=== PATIENT | female | born 1945 | race Caucasian/White ===

== ENCOUNTER 2020-10-29 09:07 | Outpatient (REF) | payer MEDICARE, OTHER, SELFPAY ==
--- NOTE | ~2020-10-29 | MM_ITS ---
EXAMINATION: MM SCREENING DIGITAL BREAST TOMOSYNTHESIS, BILATERAL CLINICAL INFORMATION: Screening. Asymptomatic. The lifetime risk of breast cancer based on the Tyrer-Cuzick Model is 3.4%. COMPARISON: Mammography: August 11, 2019 and studies dating back to July 21, 2012 TECHNIQUE: Digital breast tomosynthesis is performed in both the craniocaudal and mediolateral oblique views along with computer-aided detection (CAD). Synthesized 2D images are generated from the tomosynthesis. FINDINGS: There are scattered areas of fibroglandular density (ACR BI-RADS breast composition Category b). There are no significant masses, abnormal calcifications, or other abnormalities. MM/MM tomosynthesis screening BI IMPRESSION: There are no significant changes from prior study. ASSESSMENT: BI-RADS 1: Negative RECOMMENDATION: Routine annual mammography screening. This patient's information was entered into a reminder system with a target due date for their next mammogram.
== END 2020-10-29 09:08 | disposition home or self-care (01) ==
LOC: HO.MAMMO 09:07
PROVIDERS: PCP Internal Medicine; Visit Provider Internal Medicine
DX: Z12.31 Encounter for screening mammogram for malignant neoplasm of breast (principal)
CPT/HCPCS: 77063; 77067

== ENCOUNTER 2021-11-02 09:29 | Outpatient (REF) | payer MEDICARE, OTHER, SELFPAY ==
--- NOTE | ~2021-11-02 | MM_ITS ---
EXAMINATION: MM SCREENING DIGITAL BREAST TOMOSYNTHESIS, BILATERAL CLINICAL INFORMATION: Screening. Asymptomatic. The lifetime risk of breast cancer based on the Tyrer-Cuzick Model is 3.1%. COMPARISON: Mammography: October 29, 2020 and studies dating back to December 30, 2013 TECHNIQUE: Digital breast tomosynthesis is performed in both the craniocaudal and mediolateral oblique views along with computer-aided detection (CAD). Synthesized 2D images are generated from the tomosynthesis. FINDINGS: There are scattered areas of fibroglandular density (ACR BI-RADS breast composition Category b). There are no significant masses, abnormal calcifications, or other abnormalities. MM/MM tomosynthesis screening BI IMPRESSION: There are no significant changes from prior study. ASSESSMENT: BI-RADS 1: Negative RECOMMENDATION: Routine annual mammography screening. This patient's information was entered into a reminder system with a target due date for their next mammogram.
== END 2021-11-02 09:30 | disposition home or self-care (01) ==
LOC: HO.MAMMO 09:29
PROVIDERS: PCP Internal Medicine; Visit Provider Internal Medicine
DX: Z12.31 Encounter for screening mammogram for malignant neoplasm of breast (principal)
CPT/HCPCS: 77063; 77067

== ENCOUNTER 2022-11-09 10:35 | Outpatient (REF) | payer MEDICARE, OTHER, SELFPAY ==
--- NOTE | ~2022-11-09 | MM_ITS ---
EXAMINATION: MM SCREENING DIGITAL BREAST TOMOSYNTHESIS, BILATERAL CLINICAL INFORMATION: Screening. Asymptomatic. The lifetime risk of breast cancer based on the Tyrer-Cuzick Model is 3%. COMPARISON: Mammography: 11/02/2021, 10/29/2020, 08/11/2019 TECHNIQUE: Digital breast tomosynthesis is performed in both the craniocaudal and mediolateral oblique views along with computer-aided detection (CAD). Synthesized 2D images are generated from the tomosynthesis. FINDINGS: There are scattered areas of fibroglandular density (ACR BI-RADS breast composition Category b). There are no significant masses, abnormal calcifications, or other abnormalities. Parenchymal pattern is similar to prior studies. Scattered parenchymal asymmetries are stable. There is no developing density or architectural abnormality. The axilla and skin contours are unremarkable. No significant changes. MM/MM tomosynthesis screening BI IMPRESSION: No mammographic evidence of malignancy. ASSESSMENT: BI-RADS 2: Benign RECOMMENDATION: Routine annual mammography screening. This patient's information was entered into a reminder system with a target due date for their next mammogram.
== END 2022-11-09 10:36 | disposition home or self-care (01) ==
LOC: HO.MAMMO 10:35
PROVIDERS: PCP Internal Medicine; Visit Provider Internal Medicine
DX: Z12.31 Encounter for screening mammogram for malignant neoplasm of breast (principal)
CPT/HCPCS: 77063; 77067

== ENCOUNTER 2022-11-23 07:13 | Outpatient (REF) | payer MEDICARE, OTHER, SELFPAY ==
[2022-11-23 11:33] LABS: MANUAL DIFF FLAG NO
[2022-11-23 11:53] LABS: Basophils Percent Auto 0.7 % (0-2); Eosinophils Absolute Auto 0.3 X10*3/uL (0.0-0.4); Eosinophils Percent Auto 4.9 % (0-4); Hemoglobin 13.3 g/dl (12.0-16.0); Imm Gran Abs Auto 0.02 X10*3/uL (0.00-0.03); Imm Gran Pct Auto 0.4 % (0.0-0.4); Lymphocytes Absolute Auto 1.6 X10*3/uL (1.2-4.9); Lymphocytes Percent Auto 29.3 % (20-40); Mean Corpuscular HGB Conc 33.3 g/dl (31.0-35.0); Mean Corpuscular Hemoglobin 31.3 pg (27.0-33.0); Mean Corpuscular Volume 94.1 fL (80.0-98.0); Mean Platelet Volume 9.9 fL (9.4-12.3); Monocytes Absolute Auto 0.5 X10*3/uL (0.1-1.2); Monocytes Percent Auto 8.9 % (2-11); Neutrophils Absolute Auto 3.1 x10*3/uL (2.0-8.3); Neutrophils Percent Auto 55.8 % (45-73); Platelet Count 250 X10*3/uL (160-400); Red Blood Count 4.25 X10*6/uL (4.20-5.50); Red Cell Distribution Width 12.6 % (11.0-16.0); White Blood Count 5.5 X10*3/uL (4.8-10.8)
[2022-11-23 12:37] LABS: Alanine Aminotransferase 22 U/L (0-31); Alkaline Phosphatase 68 U/L (39-117); Anion Gap 10 (12-20); Aspartate Amino Transferase 17 U/L (5-31); Bilirubin Total 0.4 mg/dL (0.0-1.0); Blood Urea Nitrogen 15 mg/dL (9-16); Calcium 8.8 mg/dL (8.4-10.2); Carbon Dioxide 28 mmol/L (22-29); Chloride 106 mmol/L (96-108); Cholesterol 187 mg/dL; Estimated Glomerular Filt Rate > 60; Glucose Fasting 111 mg/dL (60-99); HDL Cholesterol 48 mg/dL; LDL Cholesterol Calculated 104 mg/dl; Potassium 4.1 mmol/L (3.3-5.1); Sodium 140 mmol/L (135-145); Total Protein 6.8 g/dL (6.5-8.0); Triglycerides 179 mg/dL
[2022-11-23 12:50] LABS: Folate 14.7 ng/mL (> or = 4.0); Thyroid Stimulating Hormone 2.95 uIU/mL (0.32-4.0); Vitamin B12 268 pg/mL (200-900); Vitamin D 25-OH Total 51.3 ng/mL (>30)
== END 2022-11-23 07:14 | disposition home or self-care (01) ==
LOC: HO.HMGCLDS 07:13
PROVIDERS: PCP Internal Medicine; Visit Provider Internal Medicine
DX: I10 Essential (primary) hypertension (principal); K21.9 Gastro-esophageal reflux disease without esophagitis; E55.9 Vitamin D deficiency, unspecified; I51.81 Takotsubo syndrome; M16.0 Bilateral primary osteoarthritis of hip; G62.9 Polyneuropathy, unspecified
CPT/HCPCS: 36415; 80053; 80061; 82306; 82607; 82746; 84443; 85025

== ENCOUNTER → 2023-03-03 19:30 | Outpatient (REF) | payer MEDICARE, OTHER, SELFPAY | LOC: HO.SL 19:30 | PROVIDERS: Visit Provider Registered Nurse | DX: G47.10 Hypersomnia, unspecified (principal); R35.1 Nocturia | CPT/HCPCS: 95810 ==

== ENCOUNTER → 2023-03-03 19:30 | Outpatient (BNV) | payer MEDICARE, OTHER, SELFPAY | PROVIDERS: Visit Provider Psychiatry & Neurology Neurology | DX: G47.33 Obstructive sleep apnea (adult) (pediatric) (principal) | CPT/HCPCS: 95810 ==

== ENCOUNTER 2023-04-17 09:20 | Outpatient (AMB) | payer MEDICARE, OTHER, SELFPAY ==
--- NOTE | 2023-04-17 09:22 | MHC.OFFWIV ---
Intake Vital Signs 04/17/23 09:24 Height 5 ft 1 in Weight 228 lb BMI 43.1 BP 120/80 Blood Pressure Location Lt brachial Position Sitting Pulse 63 Pulse Source Pulse Oximeter Pulse Oximetry (%) 98 Oxygen Delivery Method Room Air Intake Visit Reasons: EP, cyst on right side of chest, burn left leg Intake Note: Patient here for a pimple like bump on her right breast that has been present for about 1 month, no head to it, not warm to the touch. Patient would also like to talk about a burning sensation of the right leg that has been happening on and off for a while now she mentions it happens when she is laying or sitting mainly. Patient Tobacco Use Status: Former Tobacco user Allergies penicillamine Allergy (Unknown, Verified 04/17/23 09:26) Itching Penicillins [PENICILLINS] Allergy (Unknown, Unverified 04/17/23 09:26) HIVES percocet Allergy (Unknown, Uncoded 04/17/23 09:26) itching Do you need a note to return to daycare/school/sports/work: No HPI EP, cyst on right side of chest, burn left leg HPI Details Patient presents with a one-month history of a small, crusty-appearing area on the top her right breast. Denies any associated pain, drainage, swelling, fever. She also reports a mild pain in her right buttock over the last year or so, with radiation down her posterior lateral right thigh, not extending further than the knee. She and she denies any leg weakness or numbness. She notices this most after prolonged sitting or standing. [facility] Social History Patient Tobacco Use Status: Former Tobacco user Review of Systems Const All systems reviewed & are unremarkable except as noted in HPI and below Physical Exam Vital Signs: Last Vital Signs Pulse 63 04/17/23 09:24 BP 120/80 04/17/23 09:24 Pulse Ox 98 04/17/23 09:24 Oxygen Delivery Method Room Air 04/17/23 09:24 BMI result Body Mass Index 43.1 Const General: cooperative, healthy appearing, comfortable and no acute distress Resp Effort & Inspection: normal respiratory effort and able to speak in complete sentences Cardio Jugular venous distension: no JVD Palpation: normal PMI Rate: regular rate Rhythm: regular rhythm Back/Spine/Pelvis Other: normal/painless right hip ROM Thoracic/Lumbar Spine: thoracic and lumbar spine normal to inspection and thoraco-lumbar ROM normal Sacroiliac joints: on the right tender to palpation Skin Other: Approximately 0.5 cm in diameter wart-appearing lesion with bumpy/rough surface top aspect of right breast approximately 12:00 o'clock. No associated pain to palpation, erythema, warmth, induration, no discharge. Extrem General: Yes capillary refill normal and Yes no clubbing, cyanosis or edema Psych Appearance: grossly normal Mental Status: mental status grossly normal Speech and movement: Normal speech and movement present Assessment & Plan Assessment & Plan (1) Wart: Code(s): B07.9 - Viral wart, unspecified Qualifiers: Viral wart type: unspecified viral wart Qualified Code(s): B07.9 - Viral wart, unspecified Plan: Patient has small, about 0.5 cm in diameter on top aspect of right breast. No associated induration, fluctuance, tenderness, erythema, warmth. Advised her to purchase OTC wart/salicylic acid 40% patches, and apply these as needed until worked falls. If this does not help, or she additional sites, she should return to clinic, see PCP, or follow-up with dermatology. (2) Inflammation of right sacroiliac joint: Code(s): M46.1 - Sacroiliitis, not elsewhere classified Plan: It appears she has some right sacroiliac joint dysfunction/inflammation. Advised her to take ibuprofen/Tylenol as needed, apply heat, and I also printed her outand reviewed a some stretches for SI joint and piriformis to do daily at home. If her pain persists, she should contact PCP and may benefit from a course of physical therapy. She agrees to plan. Coding Level of Care Code Est Pt Level 3 (54759) Diagnoses Viral warts, unspecified type B07.9 Viral wart type: unspecified viral wart Inflammation of right sacroiliac joint M46.1
[2023-04-17 09:24] VITALS: BP 120/80; PULSE 63; O2SAT 98; BMI 43.1
== END 2023-04-17 09:55 | disposition home or self-care (01) ==
PROVIDERS: Visit Provider Nurse Practitioner Family
DX: B07.9 Viral wart, unspecified (principal); M46.1 Sacroiliitis, not elsewhere classified
CPT/HCPCS: 99213

== ENCOUNTER 2023-11-15 10:39 | Outpatient (REF) | payer MEDICARE, OTHER, SELFPAY | END 2023-11-15 10:40 | disposition home or self-care (01) | LOC: HO.MAMMO 10:39 | PROVIDERS: PCP Internal Medicine; Visit Provider Internal Medicine | DX: Z12.31 Encounter for screening mammogram for malignant neoplasm of breast (principal) | CPT/HCPCS: 77063; 77067 ==

== ENCOUNTER → 2023-11-15 10:45 | Outpatient (BNV) | payer MEDICARE, OTHER, SELFPAY | PROVIDERS: PCP Internal Medicine; Visit Provider Radiology Diagnostic Radiology | DX: Z12.31 Encounter for screening mammogram for malignant neoplasm of breast (principal) | CPT/HCPCS: 77063; 77067 ==

== ENCOUNTER 2024-05-01 08:17 | Outpatient (REF) | payer MEDICARE, OTHER, SELFPAY ==
[2024-05-01 10:00] LABS: MANUAL DIFF FLAG NO
[2024-05-01 10:14] LABS: Basophils Percent Auto 0.5 % (0-2); Eosinophils Absolute Auto 0.2 X10*3/uL (0.0-0.4); Eosinophils Percent Auto 3.6 % (0-4); Hematocrit 39.6 % (37.0-47.0); Hemoglobin 13.4 g/dl (12.0-16.0); Imm Gran Abs Auto 0.04 X10*3/uL (0.00-0.03); Imm Gran Pct Auto 0.7 % (0.0-0.4); Lymphocytes Absolute Auto 1.3 X10*3/uL (1.2-4.9); Lymphocytes Percent Auto 22.8 % (20-40); Mean Corpuscular HGB Conc 33.8 g/dl (31.0-35.0); Mean Corpuscular Hemoglobin 31.9 pg (27.0-33.0); Mean Corpuscular Volume 94.3 fL (80.0-98.0); Mean Platelet Volume 9.9 fL (9.4-12.3); Monocytes Absolute Auto 0.6 X10*3/uL (0.1-1.2); Neutrophils Absolute Auto 3.4 x10*3/uL (2.0-8.3); Neutrophils Percent Auto 62.4 % (45-73); Platelet Count 213 X10*3/uL (160-400); Red Cell Distribution Width 12.5 % (11.0-16.0); White Blood Count 5.5 X10*3/uL (4.8-10.8)
[2024-05-01 10:34] LABS: Estimated Average Glucose 114 mg/dL; Hemoglobin A1c % 5.6 % (<6.0)
[2024-05-01 10:44] LABS: Alanine Aminotransferase 29 U/L (0-31); Albumin Level 3.9 g/dL (3.5-5.0); Alkaline Phosphatase 74 U/L (39-117); Anion Gap 9 (12-20); Aspartate Amino Transferase 17 U/L (5-31); Bilirubin Total 0.5 mg/dL (0.0-1.0); Blood Urea Nitrogen 13 mg/dL (9-16); Calcium 9.1 mg/dL (8.4-10.2); Carbon Dioxide 28 mmol/L (22-29); Chloride 104 mmol/L (96-108); Cholesterol 181 mg/dL (<200); Estimated Glomerular Filt Rate > 60; Glucose Fasting 124 mg/dL (60-99); HDL Cholesterol 51 mg/dL (>40); LDL Cholesterol Calculated 95 mg/dL (<100); Potassium 4.2 mmol/L (3.3-5.1); Sodium 137 mmol/L (135-145); Total Protein 7.4 g/dL (6.5-8.0); Triglycerides 179 mg/dL (<150); Vitamin D 25-OH Total 54.3 ng/mL (>30)
== END 2024-05-01 08:18 | disposition home or self-care (01) ==
LOC: HO.HMGCLDS 08:17
PROVIDERS: PCP Internal Medicine; Visit Provider Internal Medicine
DX: I10 Essential (primary) hypertension (principal); I51.81 Takotsubo syndrome; K21.9 Gastro-esophageal reflux disease without esophagitis; E55.9 Vitamin D deficiency, unspecified; G62.9 Polyneuropathy, unspecified; E66.09 Other obesity due to excess calories; Z13.1 Encounter for screening for diabetes mellitus
CPT/HCPCS: 36415; 80053; 80061; 82306; 83036; 84443; 85025

== ENCOUNTER 2024-08-26 13:55 | Outpatient (AMB) | payer MEDICARE, OTHER, SELFPAY ==
--- NOTE | 2024-08-26 14:19 | A.OFFPC_ITS ---
Vital Signs 08/26/24 14:21 Height 5 ft 1.75 in Weight 242 lb BMI 44.6 BP 142/90 H Blood Pressure Location Rt brachial Position Sitting Pulse 62 Temp 98.1 F Pulse Oximetry (%) 96 Intake Visit Reasons: Check heart Intake Note: Patient noted worsening fatigue and dyspnea with mild exertion. Pulmonology r/o'd Cpap malfunction, but noted slight heart murmur. Distant history of hospitalization for Broken Heart Syndrome (< 10 years ago). Outpatient cardiology follow up, but patient discharged (no need for follow up). Libia is at her highest weight now, and would like to start taking Ozempic or Wegovy. Allergies penicillamine Allergy (Unknown, Verified 08/26/24 16:06) Itching Medication List - Last Reconciled 08/26/24 by Celina Morales PA-C amlodipine 10 mg PO DAILY bupropion HCl XL 300 mg PO DAILY cetirizine 10 mg PO DAILY cholecalciferol (vitamin D3) 50 mcg PO DAILY duloxetine mg PO gabapentin mg PO [id number] mg (krill oil) 1 cap PO DAILY losartan 50 mg PO DAILY meloxicam 15 mg PO DAILY metoprolol succinate ER 50 mg PO DAILY omeprazole 20 mg PO DAILY semaglutide (Ozempic) 0.25 mg (0.368 mL) subcut QWEEK PFSH Social History Patient Tobacco Use Status: Former Tobacco user Physical exam (Primary Care) Vital Signs: Last Vital Signs Temp 98.1 F 08/26/24 14:21 Pulse 62 08/26/24 14:21 BP 142/90 H 08/26/24 14:21 Pulse Ox 96 08/26/24 14:21 Care Plan Goal for BP management: Goal is 130/80 BP today at 142/90 Next steps: Will monitor and reassess at next visit BMI result Body Mass Index 44.6 BMI Assessment/Plan discussion: High BMI High, discussed plan: lifestyle, weight reduction, dietary, physical activity and alcohol moderation Tobacco/Smoking Status: Tobacco use Status Patient Tobacco Use Status Former Tobacco user 08/26/24 14:20 Coding Level of Care Code Est Pt Level 4 (75423) Complex EM visit Add On G2211 Diagnoses Fatigue R53.83 Heart murmur R01.1 Morbid obesity with BMI of 45.0-49.9, adult E66.01; Z68.42 Assessment & Plan Assessment & Plan (1) Fatigue: Code(s): R53.83 - Other fatigue Category: Medical Plan: Will continue to evaluate with labs, x-ray, carotid ultrasound and referral to Cardiology. Condition is stable at this time. (2) Heart murmur: Code(s): R01.1 - Cardiac murmur, unspecified Category: Medical Plan: Will continue to evaluate with labs, x-ray, carotid ultrasound and referral to Cardiology. Condition is stable at this time. (3) Morbid obesity with BMI of 45.0-49.9, adult: Code(s): E66.01 - Morbid (severe) obesity due to excess calories; Z68.42 - Body mass index [BMI] 45.0-49.9, adult Category: Medical Plan: Patient will continue dieting and exercising. Will attempt to send Ozempic for weight loss to her pharmacy. Will continue to monitor. Plan Plan - Continue monitoring blood pressure; maintain current Losartan dosage, avoid increasing unless consistently elevated readings are noted. - Order an EKG and initiate referral to cardiology for further evaluation and testing including echocardiogram to assess ejection fraction and rule out congestive heart failure. - Consider ordering a comprehensive metabolic panel including BNP for heart function evaluation. - Discuss potential addition of weight management pharmacotherapy with coverage check on Ozempic or Wegovy. - Monitor sleep apnea management adherence and assess for positive developments or persistent symptoms. Orders: Orders Complete Blood Count Auto Diff Today R01.1 - Cardiac murmur, unspecified, R53.83 - Other fatigue Hemoglobin A1c Today R01.1 - Cardiac murmur, unspecified, R53.83 - Other f atigue Erythrocyte Sedimentation Rate Today R01.1 - Cardiac murmur, unspecified, R53.83 - Other fatigue US carotid duplex BI Today R01.1 - Cardiac murmur, unspecified, R53.83 - Other fatigue Comprehensive [place]. Panel Fast Today R01.1 - Cardiac murmur, unspecified, R53.83 - Other fatigue B Type Natriuretic Peptide Today R60.0 - Localized edema Magnesium Today R01.1 - Cardiac murmur, unspecified, R53.83 - Other fatigue Liver Panel Today R01.1 - Cardiac murmur, unspecified, R53.83 - Other fatigue Lipid Panel Today R01.1 - Cardiac murmur, unspecified, R53.83 - Other fatigue TSH reflex Free T4 Today R01.1 - Cardiac murmur, unspecified, R53.83 - Other fatigue Vitamin D 25-OH Total Today R01.1 - Cardiac murmur, unspecified, R53.83 - Other fatigue Vitamin B12 and Folate Today R01.1 - Cardiac murmur, unspecified, R53.83 - Other fatigue C Reactive Protein Today R01.1 - Cardiac murmur, unspecified, R53.83 - Other fatigue Lyme IgG/IgM w/reflex to WB Today R01.1 - Cardiac murmur, unspecified, R53.83 - Other fatigue XR chest 2V Today R01.1 - Cardiac murmur, unspecified, R53.83 - Other fatigue Referrals Cardiology Referral R01.1 - Cardiac murmur, unspecified, R53.83 - Other fatigue Medications: New semaglutide (Ozempic) for 4 weeks 0.25 mg (0.368 mL) subcut QWEEK 3 mL 1RF obesity Patient Instructions: Plan - Continue monitoring blood pressure; maintain current Losartan dosage, avoid increasing unless consistently elevated readings are noted. - Order an EKG and initiate referral to cardiology for further evaluation and testing including echocardiogram to assess ejection fraction and rule out congestive heart failure. - Consider ordering a comprehensive metabolic panel including BNP for heart function evaluation. - Discuss potential addition of weight management pharmacotherapy with coverage check on Ozempic or Wegovy. - Monitor sleep apnea management adherence and assess for positive developments or persistent symptoms. Scribe Plan - Not visible on output: History of Present Illness The patient is a 79-year-old female presenting with ongoing fatigue and a heart murmur detected during a recent examination. The fatigue has been persistent for several months, noted to be similar to previous experiences prior to sleep apnea diagnosis, but her CPAP compliance is currently at 97% with minimal events. Sleep apnea was diagnosed with CPAP therapy being effective in minimizing apneic events. Despite treatment, the patient continues to experience fatigue, which was not theorized to be linked to CPAP function. During a prior evaluation, a slight heart murmur was identified, an observation that was new to her record. The patient has no reported dizziness or chest pain but was noted to possibly become short of breath while ascending stairs, though she stops primarily due to fatigue. Approximately 10 years ago, she experienced Takotsubo Cardiomyopathy, also known as Broken Heart Syndrome, which was managed with cardiac catheterization. At that time, she was under significant stress but there is no indication of myocardial infarction or persistent cardiac pathology since. Recently, the patient reported elevated blood pressure readings reaching 152/72 mmHg, for which she was put on Losartan by her healthcare provider a month ago. She has a previously trialed antihypertensive medication with side effects, namely Losartan which was linked to headaches in the past. Her current blood pressure medications include amlodipine, which is known to potentially cause leg swelling, though she reports no significant lower extremity edema. Obesity has been a persistent issue, related to her high body weight, nearing its highest recorded value. The patient is considering pharmacotherapy with medications such as Ozempic or Wegovy given the proven scientific basis she has been informed of. Her coverage is a factor in medication possibilities. Social History - Lives in an independent and assisted living facility for seniors - Receives weekly blood pressure checks from an onsite nurse - Formerly worked in a high-stress environment - Consults with a psychotherapist regularly - Expresses preference against extensive physical activities such as climbing stairs due to fatigue Review of Systems - Cardiovascular: Reports no dizziness or chest pains; denies lower extremity edema - Respiratory: Denies significant shortness of breath unless exerting on stairs - Musculoskeletal: Denies pain on examination, except slight pain upon palpation Physical Exam Appearance: Alert. Oriented X3. No acute distress. Head: Normal external exam. Normocephalic. Atraumatic. Eyes: Pupils are equal, round, and reactive to light. Extraocular movements intact. Conjunctiva and sclera normal. Eyelids normal. Ears: External auditory canal normal. Tympanic membranes normal. Throat: Pharynx normal. Uvula midline. Moist mucous membranes. Neck: Normal inspection. Neck supple. Full range of motion. No adenopathy. Thyroid Normal. No meningeal signs. No neck mass noted. Cardiovascular: Normal heart rate and rhythm. Heart sound normal. Slight heart murmur noted. Pulses normal throughout. Respiratory: No respiratory distress. Painless inspiration. Breath sounds normal. No wheezes/rales/rhonchi noted. Chest nontender. No accessory muscle usage noted or decreased air movement noted. Abdomen: Soft and nontender. Bowel sounds normal in all 4 quadrants. No distention noted. No organomegaly noted. No visible injury noted. Back: No costovertebral angle tenderness. Full range of motion noted. Skin: Skin warm and dry. Normal skin color. Normal skin turgor. No rashes/lesions/lacerations noted. Extremities: No lower extremity edema. Extremities exhibit normal range of motion. Extremities nontender. Neuro: Oriented X 3. No motor deficit. No sensory deficit. Reflexes normal. Results Plan - Continue monitoring blood pressure; maintain current Losartan dosage, avoid increasing unless consistently elevated readings are noted. - Order an EKG and initiate referral to cardiology for further evaluation and testing including echocardiogram to assess ejection fraction and rule out congestive heart failure. - Consider ordering a comprehensive metabolic panel including BNP for heart function evaluation. - Discuss potential addition of weight management pharmacotherapy with coverage check on Ozempic or Wegovy. - Monitor sleep apnea management adherence and assess for positive developments or persistent symptoms. Patient was informed and verbally consented to the use of an ambient scribe for clinic note documentation during this visit. Discussion Notes During the visit, I discussed the patient?s concern regarding her persistent fatigue and the possibility of it relating to her cardiac history, specifically the heart murmur and past Takotsubo Cardiomyopathy. I explained the need for further evaluation with an EKG and echocardiogram to understand her heart function. We reviewed her hypertension management and the rationale behind c urrent dosing. I addressed the indication of Ozempic or Wegovy as potential adjuncts for obesity, emphasizing the importance of her insurance coverage. I confirmed the follow-up schedule via telehealth to discuss the results of upcoming tests and any necessary adjustments in treatment plans. The importance of weekly blood pressure checks and documenting these values for review was highlighted. Patient Instructions - Continue current medication regimen for hypertension and report any new symptoms. - Attend scheduled cardiology appointment and complete all planned tests like EKG and lab work. - Report any significant shortness of breath, chest pain, or new symptoms immediately. - Maintain CPAP use as prescribed. - Keep track of blood pressure using onsite services. - Discuss potential medication for weight loss with primary care provider and insurer. - Schedule telehealth follow up within two weeks to one month to review test results. - Monitor general health and report any notable changes.
[2024-08-26 14:21] VITALS: BP 142/90; PULSE 62; TEMP 36.7; O2SAT 96; BMI 44.6
== END 2024-08-26 15:08 | disposition home or self-care (01) ==
LOC: HO.HMCSH 13:55
PROVIDERS: PCP Internal Medicine; Visit Provider Physician Assistant Medical
DX: R53.83 Other fatigue (principal); R01.1 Cardiac murmur, unspecified; E66.01 Morbid (severe) obesity due to excess calories; Z68.42 Body mass index [BMI] 45.0-49.9, adult

== ENCOUNTER → 2024-08-26 13:55 | Outpatient (BNVA) | payer MEDICARE, OTHER, SELFPAY | PROVIDERS: PCP Internal Medicine; Visit Provider Physician Assistant Medical | DX: R53.83 Other fatigue (principal); R01.1 Cardiac murmur, unspecified; E66.01 Morbid (severe) obesity due to excess calories; Z68.42 Body mass index [BMI] 45.0-49.9, adult; Z71.3 Dietary counseling and surveillance | CPT/HCPCS: 99212 ==

== ENCOUNTER 2024-09-09 08:47 | Outpatient (REF) | payer MEDICARE, OTHER, SELFPAY ==
--- NOTE | ~2024-09-09 | US_ITS ---
CLINICAL HISTORY: R01.1 - Cardiac murmur, unspecified US Bilateral Carotid Duplex Comparison: None Findings: Moderate plaque is present within bilateral common carotid arteries and carotid bulbs. Normal color doppler and waveforms morphology. No focal elevation of flow velocity or ICA to CCA peak systolic velocity ratio. Vertebral arteries demonstrate antegrade flow bilaterally. IMPRESSION: Normal carotid velocities, no significant stenosis (0-49% stenosis). This document has been electronically signed by: Virgil Mueller MD, PHD on 09/10/2024 05:05:11
--- NOTE | ~2024-09-09 | XR_ITS ---
CLINICAL HISTORY: R01.1 - Cardiac murmur, unspecified 2 view chest x-ray Comparison: None Findings: The lungs are clear. Heart size is normal. No acute fracture. IMPRESSION: 1. No acute findings. This document has been electronically signed by: Virgil Mueller MD, PHD on 09/10/2024 05:01:23
--- OUTSIDE RECORDS SUMMARY | 2024-09-09 08:52 | XMS_ITS | Clinical Summary ---
Author Organization 175 [facility] Address [address] [place] [address] Phone Care Team Providers Care Job Analyst Name Role Phone ReinaLj mead Primary Care Provider [phone] Allergies Active Allergy Reactions Criticality Noted Date Comments Penicillins 05/28/2016 Other Reaction(s): Hives/Urticaria Medications Medication Sig Dispensed Refills Start Date End Date Status cetirizine (ZyrTEC) 10 mg tablet Take 1 tablet (10 mg total) by mouth 1 (one) time each day. 11/21/2023 Active gabapentin (NEURONTIN) 300 mg capsule 11/19/2022 Active traZODone (DESYREL) 50 mg tablet 09/13/2022 Active alpha lipoic acid 600 mg capsule Take by mouth. Active minoxidiL-betamethaso ne (Oxopod) 7-0.05 % solution Apply topically. Active azelastine (ASTELIN) 137 mcg (0.1 %) nasal spray 2 Sprays by Each Nare route 2 times daily. Use in each nostril as directed 12/15/2021 Active DULoxetine (CYMBALTA) [address] capsule Take 3 Caps by mouth daily. Take 1 cap in the moring and 2 caps at night. 03/07/2020 Active fluticasone propionate (FLONASE) 50 mcg/actuation nasal spray 11/17/2019 Active omeprazole OTC (PriLOSEC OTC) 20 mg EC tablet 20 mg. 10/12/2016 Active meloxicam (MOBIC) 15 mg tablet Take 15 mg by mouth daily. Active amLODIPine (NORVASC) 10 mg tablet Take 10 mg by mouth daily. 08/22/2017 Active metoprolol succinate (TOPROL-XL) 50 mg 24 hr tablet Take 50 mg by mouth daily. Active buPROPion XL (WELLBUTRIN XL) 300 mg 24 hr tablet Take 300 mg by mouth every morning. Active KRILL OIL ORAL Take by mouth daily. Active cholecalciferol (VITAMIN D-3) 25 mcg (1,000 unit) capsule Take by mouth. Active losartan (COZAAR) 50 mg tablet 07/06/2024 Active Active Problems Problem Noted Date Diagnosed Date Nocturnal hypoxia 01/24/2023 Overview (06/02/2024): 01/06/2023 [place] on CPAP showed: Low-dose SPO2 is 75%. Time spent less than 88% is 50 minutes Supplemental oxygen might be indicated if treatment study shows decreased oxygen as well. Obstructive sleep apnea syndrome 05/16/2017 Overview (06/02/2024): [facility] [place]ysomnogram Date 03/03/2023. Wt 220#; BMI 41.6. Without PAP: AHI 61; Obstructive apneas 34; Mixed apneas 0; Central apneas 0; Hypopneas 49; average oxygen saturation 92 (lowest 83%); PLMs 50. With PAP: On CPAP @ 6-10cm; AHI 0, and, average oxygen saturation was 94% and lowest SpO2-87%; PLMs ~ - Obstructive Sleep Apnea - severe overall and not present in REM; mostly obstructive apnea and hypoapnea ; with sleep related hypoventilation by 2022 split night polysomnogram. Patient apnea and hypoapnea well controlled on CPAP of 10cm with N20 mask. [facility] Home Sleep Apnea Test: Date ; BMI 31.2; AHI 28; average oxygen saturation 94% (lowest 81% with saturations <88% for 5% or more of study) - Obstructive Sleep Apnea - moderate; with sleep related hypoventilation by 2019 home sleep apnea test. Last Assessment & Plan: CPAP 4-18 through [facility] Patient has mild residual apnea with some oxygen desaturations on 01/06/2023[place]O on CPAP. Gastroesophageal reflux disease 10/12/2016 Depression 05/28/2016 Dilated cardiomyopathy 05/28/2016 Hypertension 05/28/2016 Polymyalgia rheumatica 05/28/2016 Encounters Date Type Department Care Team Description 07/17/2024 Telephone Pulmonolgy [address] [place] [phone] Lara Addison [place] DME request (Order for CPAP supplies sent to [facility]) 07/13/2024 10:30 AM EST Office Visit [facility] 175 [facility] [address] [place] [phone] Steffi Velazco NP Obstructive sleep apnea syndrome (Primary Dx); Nocturnal hypoxia; Dilated cardiomyopathy (CMS/HCC); Hypertension, unspecified type; PND (post-nasal drip); Seasonal allergies; Morbid obesity (CMS/HCC) from Last 3 Months Medical History Medical History Date Comments PMR (polymyalgia rheumatica) (CMS/HCC) HTN (hypertension) GERD (gastroesophageal reflux disease) Depression Dilated cardiomyopathy (CMS/HCC) 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 Sleep apnea treated with con tinuous positive airway pressure (CPAP) 1989 Social History Tobacco Use Types Packs/Day Years Used Date Smoking Tobacco: Former Cigarettes Q uit: 05/28/1981 Smokeless Tobacco: Never Tobacco Cessation:Counseling Given: Not Answered Alcohol Use Standard Drinks/Week Comments Not Asked 0 (1 standard drink = 0.6 oz pur e alcohol) Sex and Gender Information Value Date Recorded Sex Assigned at Not on file Gender Identity Not on file Sexual Orientation Not on file Job Start Date Occupation Industry Not on file Not on file Not on file Obstetrics History Last Filed Vital Signs Vital Sign Reading Time Taken Comments Blood Pressure 132/76 07/13/2024 10:38 AM EST Pulse 63 07/13/2024 10:38 AM EST Temperature 36.6 ??C (97.9 ??F) 07/13/2024 10:[address] Respiratory Rate 16 07/13/2024 10:38 AM EST Oxygen Saturation 98% 07/13/2024 10:38 AM EST Inhaled Oxygen Concentration - - Weight 109 kg (239 lb 12.8 oz) 07/13/2024 10:38 AM EST Height 154.9 cm (5' 1 ) 07/13/2024 10:38 AM EST Body Mass Index 45.31 07/13/2024 10:38 AM EST Plan of Treatment Upcoming Encounters Date Type Department Care Team (Late st Contact Info) Description 07/13/2025 10:10 AM EST Office Visit Pulmonolgy - [place] 175 [facility] [address] [place] [phone] Steffi Velazco NP 175 [facility] [address] [place] [address] Health Maintenance Due Date Last Done Comments DTaP,Tdap,and Td Vaccines (1 - Tdap) 01/10/1964 Zoster Vaccines (1 of 2) 1995 Pneumococcal Vaccine: 65+ Ye ars (1 of 1 - PCV) 2010 RSV Immunization Patients 60 + Years Old (1 - 1-dose 75+ series) 01/10/2020 Cholesterol Screening (Lipid Panel) 07/14/2022 Depression Screening 07/14/2022 Falls Risk Assessment 07/14/2022 Hepatitis C Screening 07/14/2022 Medicare Annual Wellness Visit 07/14/2022 Osteoporosis Screening (Bone Density Screening) 07/14/2022 Social Influencers of Health Screening 07/14/2022 Hypertension/CHF/CAD Annual BMP Blood Test 07/21/2022 COVID-19 Vaccine (2023-2 5 season) 2024 Influenza Vaccine (#1) 2024 HIB Vaccines Aged Out No longer eligi ble based on patient's age to complete this topic HPV Vaccines Aged Out No longer eligi ble based on patient's age to complete this topic Hepatitis A Vaccines Aged Out No long er eligible based on patient's age to complete this topic Hepatitis B Vaccines Aged Out No long er eligible based on patient's age to complete this topic IPV Vaccines Aged Out No longer eligi ble based on patient's age to complete this topic MMR Vaccines Aged Out No longer eligi ble based on patient's age to complete this topic Meningococcal ACWY Vaccine Aged Out N o longer eligible based on patient's age to complete this topic RSV Immunization Patients Un vahid 20 months Aged Out No longer eligible b ased on patient's age to complete this topic Varicella Vaccines Aged Out No longer eligible based on patient's age to complete this topic Care Teams Job Analyst Relationship Specialty Start Date End Date Lj Huang DO [address] [place] [phone] PCP - General Internal Medicine 05/01/16
[2024-09-09 09:51] LABS: MANUAL DIFF FLAG NO
[2024-09-09 09:58] LABS: Basophils Percent Auto 0.7 % (0-2); Eosinophils Absolute Auto 0.2 X10*3/uL (0.0-0.4); Eosinophils Percent Auto 3.1 % (0-4); Hemoglobin 14.6 g/dl (12.0-16.0); Imm Gran Abs Auto 0.02 X10*3/uL (0.00-0.03); Imm Gran Pct Auto 0.3 % (0.0-0.4); Lymphocytes Absolute Auto 1.3 X10*3/uL (1.2-4.9); Lymphocytes Percent Auto 21.5 % (20-40); Mean Corpuscular HGB Conc 34.8 g/dl (31.0-35.0); Mean Corpuscular Hemoglobin 32.6 pg (27.0-33.0); Mean Corpuscular Volume 93.8 fL (80.0-98.0); Mean Platelet Volume 9.5 fL (9.4-12.3); Monocytes Absolute Auto 0.4 X10*3/uL (0.1-1.2); Neutrophils Percent Auto 67.4 % (45-73); Platelet Count 230 X10*3/uL (160-400); Red Blood Count 4.48 X10*6/uL (4.20-5.50); White Blood Count 5.9 X10*3/uL (4.8-10.8)
[2024-09-09 10:17] LABS: Estimated Average Glucose 126 mg/dL; Hemoglobin A1C 164.0129 umol/L; Total Hemoglobin (HGBA1C) 3851.6469 umol/L
[2024-09-09 10:19] LABS: Alanine Aminotransferase 50 U/L (0-31); Albumin Level 3.9 g/dL (3.5-5.0); Alkaline Phosphatase 77 U/L (39-117); Anion Gap 12 (12-20); Aspartate Amino Transferase 33 U/L (5-31); B Type Natriuretic Peptide 48 pg/mL (<100); Bilirubin Direct 0.2 mg/dL (0.0-0.5); Bilirubin Total 0.6 mg/dL (0.0-1.0); Blood Urea Nitrogen 12 mg/dL (9-16); Calcium 8.8 mg/dL (8.4-10.2); Carbon Dioxide 25 mmol/L (22-29); Chloride 105 mmol/L (96-108); Cholesterol 167 mg/dL (<200); Estimated Glomerular Filt Rate > 60; Glucose Fasting 130 mg/dL (60-99); HDL Cholesterol 47 mg/dL (>40); LDL Cholesterol Calculated 88 mg/dL (<100); Magnesium 1.8 mg/dL (1.6-2.6); Potassium 4.6 mmol/L (3.3-5.1); Sodium 137 mmol/L (135-145); Total Protein 7.9 g/dL (6.5-8.0); Triglycerides 161 mg/dL (<150)
[2024-09-09 10:32] LABS: Erythrocyte Sedimentation Rate 16 MM/HR (0-20)
[2024-09-09 10:42] LABS: TSH reflex Free T4 2.34 uIU/mL (0.32-4.0); Vitamin D 25-OH Total 58.4 ng/mL (>30)
[2024-09-09 10:47] LABS: Folate 4.8 ng/mL (> or = 4.0); Vitamin B12 280 pg/mL (200-900)
[2024-09-11 07:44] LABS: Lyme Abs Screen <0.90 index
== END 2024-09-09 08:48 | disposition home or self-care (01) ==
LOC: HO.HMGCX 08:47
PROVIDERS: PCP Internal Medicine; Visit Provider Physician Assistant Medical
DX: R01.1 Cardiac murmur, unspecified (principal); R53.83 Other fatigue; R60.0 Localized edema; R42 Dizziness and giddiness; Z13.1 Encounter for screening for diabetes mellitus
CPT/HCPCS: 36415; 71046; 80053; 80061; 80076; 82248; 82306; 82607; 82746; 83036; 83735; 83880; 84443; 85025; 85652; 86140; 86617; 86618; 93880

== ENCOUNTER → 2024-09-09 10:01 | Outpatient (BNV) | payer MEDICARE, OTHER, SELFPAY | PROVIDERS: PCP Internal Medicine; Visit Provider General Practice | DX: R42 Dizziness and giddiness (principal); R01.1 Cardiac murmur, unspecified | CPT/HCPCS: 71046; 93880 ==

== ENCOUNTER → 2024-11-19 09:48 | Outpatient (REF) | payer MEDICARE, OTHER, SELFPAY ==
--- NOTE | 2024-11-19 09:52 | CA_ITS ---
Transthoracic Echocardiogram Patient (Last, First, Middle): Ruth Goodson A Gender: Female Date of : 1945 Age: 79 Procedure Date: 11/19/2024 Procedure Type: Transthoracic Echocardiogram Location: OP Height: 154.94 cm Weight: 102.06 kg BSA: 1.99 m2 Heart Rate: bpm BP: 132 / 78 mmHg Follow Up Manager: TO/RC Referring MD: Celina Morales PA-C Crew Truck Driver: Mani Mason MD Symptoms: I10 - Essential (primary) hypertension Study Quality: Technically Difficult ECG Rhythm: Sinus Conclusions: - 1. Normal LV ejection fraction of 60-65% with impaired relaxation filling pattern 2. Calcific aortic and mitral valve changes noted with normal cardiac valvular Doppler 3. Normal RV systolic pressure 4. Mildly dilated ascending aorta at 3.8 cm 5. No pericardial effusion Findings Procedure Information Contrast agent, definity, is being given per protocol without apparent complications. Left Ventricle Normal left ventricular size, thickness, and systolic function. The visually estimated ejection fraction is between 60-65%. Spectral Doppler is indicative of an impaired relaxation filling pattern. E/E prime ratio is between 8 and 15 consistent with indeterminate filling pressures. Wall Motion Rest Echo Findings The basal inferior segment is hypokinetic. All other scored wall segments showed normal motion. Right Ventricle Normal right ventricular cavity size and systolic function. Atria The left atrium is moderately dilated. There is no evidence of interatrial shunt. The right atrium is normal in size. Aortic Valve There is mild calcification of the aortic valve. There is no aortic valve stenosis. There is no aortic valve regurgitation. Mitral Valve There is mild anterior and posterior mitral leaflet thickening. There is mild mitral annular calcification. There is trace mitral valve regurgitation. There is no mitral valve stenosis. Pulmonic Valve The pulmonic valve was not well visualized. Tricuspid Valve Likely normal tricuspid valve structure and function. There is trace tricuspid valve regurgitation. The right ventricular systolic pressure is normal. The right ventricular systolic pressure is 21 mmHg. Normal right atrial pressure. There is no evidence of pulmonary hypertension. Great Vessels The pulmonary artery was not well visualized. There is mild dilatation of the ascending aorta measuring 3.80 cm. Small plaque is seen in the sino tubular ridge. Venous The inferior vena cava is normal in size and collapses greater than 50% with inspiration. Pericardium/Pleural There is no evidence of pericardial effusion. Prior Study Comparison No prior study available for comparison. Measurements 2D Linear Measurements IVSd: 1.15 0.6-0.9/0.6-1.0 cm LVIDd: 3.99 3.9-5.3/4.2-5.9 cm LVIDd Index: 2.01 2.4-3.2/2.2-3.1 cm/m2 LVIDs: 2.56 2.0-3.6 cm LVPWd: 0.91 0.7-1.1 cm LV Mass: 164.58 67-162/88-224 g LV Mass Index: 82.71 43-95/49-115 g/m2 LVOT Diam: 2.10 3.0+(-)1.3 cm 2D Systolic Function EF 4C: 63.90 >55% EF 2C: 56.60 >55% EF BiP: 60.40 >55% Mitral Valve MV VTI: 0.37 MV Pk Juanjose: 1.26 MV Mn Juanjose: 0.65 MV Pk Grad: 6.00 MV Mn Grad: 2.00 MV Pk E: 0.91 MV PK A: 1.33 MV Decel Time: 253.00 E/A: 0.70 E'Lateral: 5.33 E'Medial: 4.35 E/E' Med: 20.90 E/E' Lat: 17.00 PHT: 74.00 MVA PHT: 2.97 MVA Continuity: 2.96 Decel [place]: 3.60 Aortic Valve AoV Pk Juanjose: 1.52 AoV Mn Juanjose: 1.00 AoV VTI: 0.34 AoV Pk Grad: 9.00 Aov Mn Grad: 5.00 ESA Cont.VTI: 3.21 LVOT LVOT Pk Juanjose: 1.24 LVOT Mn Juanjose: 0.77 LVOT VTI: 0.31 LVOT Pk Grad: 6.00 LVOT Mn Grad: 3.00 LVOT Diam: 2.10 LVOT Area: 3.46 Diastolic Function MV Pk E: 0.91 MV Pk A: 1.33 E/A: 0.70 E'Medial: 4.35 E/E' Med: 20.90 E' Laterial: 5.33 E/E' Lat: 17.00 Right Ventricle TAPSE (mm): 23.00 TVS' Juanjose: 13.30 Tricuspid Valve TR Pk Juanjose: 2.13 TR Pk Grad: 18.00 RA Press: 3.00 RVSP: 21.00 Great Vessels Aorta Sinus of Valsalva: 3.40 2.0-3.5 cm Ao Asc: 3.80 2.1-3.4 cm Pulmonary Valve PV Pk Juanjose: 0.75 Peak PV Grad: 2.00 Updated in Other Vendor System with Status of Final Mani Mason MD electronically signed on 11/19/2024 3:28:20 PM with status of Final
--- OUTSIDE RECORDS SUMMARY | 2024-11-19 11:23 | XMS_ITS | Clinical Summary ---
Author Organization 175 [facility] Address [address] [place] [address] Phone Care Team Providers Care Staff Research Scientist Name Role Phone Reina Lj Primary Care Provider [phone] Allergies Active Allergy Reactions Criticality Noted Date Comments Penicillins 05/28/2016 Other Reaction(s): Hives/Urticaria Medications gabapentin (NEURONTIN) 300 mg capsule 11/19/2022 Active traZODone (DESYREL) 50 mg tablet 09/13/2022 Active alpha lipoic acid 600 mg capsule Take by mouth. Active minoxidiL-betam ethasone (Oxopod) 7-0.05 % solution Apply topically. Active [...] 20 mg EC tablet 20 mg. 10/12/2016 Act gela meloxicam (MOBIC) 15 mg tablet Take 15 [...] losartan (COZAAR) 50 mg tablet 07/06/2024 Active cetirizine (ZyrTEC) 10 mg tablet TAKE 1 TABLET DAILY 90 tablet 3 10/06/2024 Active Active Problems Problem Noted Date Diagnosed Date Nocturnal hypoxia 01/24/2023 Overview (06/02/2024): 01/06/2023 [place] on CPAP showed: Low-dose SPO2 is 75%. Time spent less than 88% is 50 minutes Supplemental oxygen might be indicated if treatment study shows decreased oxygen as well. Obstructive sleep apnea syndrome 05/16/2017 [place] (06/02/2024): [facility] [place] Date 03/03/2023. Wt 220#; [...] on CPAP of 10cm with N20 mask. [facility] Home Sleep Apnea Test: Date [...] reflux disease 10/12/2016 Depression 05/28/2016 Dilated cardiomyopathy ([facility] V24, [facility] V28 ) 05/28/2016 Hypertension 05/28/2016 Polymyalgia rheumatica ([facility] V24) 05/28/2016 Medical History Medical History Date Comments PMR (polymyalgia rheumatica) ([facility] V24) HTN (hypertension) GERD (gastroesophageal reflux disease) Depression Dilated cardiomyopathy ([facility] V24, [facility] V28) about 5-6years diagnosed wit h Broken Heart Syndrome but after 1 year was discharge from cardiology. Sleep apnea treated with con tinuous positive airway pressure (CPAP) 1989 Social History Tobacco Use Types Packs/Day Years Used Date Smoking Tobacco: Former Cigarettes Q uit: 05/28/1981 Smokeless Tobacco: Never Tobacco Cessation:Counseling Given: Not Answered Alcohol Use Standard Drinks/Week Comments Not Asked 0 (1 standard drink = 0.6 oz pur e alcohol) Comments Unknown Sex and Gender Information Value Date Recorded Sex Assigned at Not on file Legal Sex Female 11:04 PM EST Gender Identity Not on file Sexual Orientation Not on file Obstetrics History Last Filed [...] 10:10 AM EST Office Visit Pulmonolgy - [place] 175 [facility] [address] [place] [address] Steffi Velazco NP [address] [facility] [address] [place] [address] Health Maintenance Due Date Last Done Comments DTaP,Tdap,and Td Vaccines (1 - Tdap) 01/10/1964 Pneumococcal Vaccine: 50+ Ye ars (1 of 1 - PCV) 1995 Zoster Vaccines (1 of 2) 1995 RSV Immunization Adult Patie nts (1 - 1-dose 75+ series) 01/10/2020 Cholesterol Screening (Lipid Panel) 07/14/2022 Depression Screening 07/14/2022 Falls Risk Assessment 07/14/2022 Hepatitis C Screening 07/14/2022 Medicare Annual Wellness Visit 07/14/2022 Osteoporosis Screening (Bone Density Screening) 07/14/2022 Social Influencers of Health Screening 07/14/2022 Hypertension/CHF/CAD Annual BMP Blood Test 07/21/2022 COVID-19 Vaccine ( - 2023-2 5 season) 2024 Influenza Vaccine (Season Ended) 2025 HIB Vaccines Aged Out No longer eligi [...] patient's age to complete this topic Meningococcal B Vaccine Aged Out No l onger eligible based on patient's age to complete this topic RSV Immunization Patients Un vahid 20 months Aged Out No longer eligible b ased on patient's age to complete this topic Varicella Vaccines Aged Out No longer eligible based on patient's age to complete this topic Insurance ,[id number] [id number] MEDICARE [facility] Care Teams Staff Research Scientist Relationship Specialty Start Date End Date Lj Huang DO [address] [place] [phone] PCP - General Internal Medicine 05/01/16
== END ==
LOC: HO.CARD 09:48
PROVIDERS: PCP Physician Assistant Medical; Visit Provider Physician Assistant Medical
DX: I10 Essential (primary) hypertension (principal); R53.83 Other fatigue; R01.1 Cardiac murmur, unspecified; R42 Dizziness and giddiness; E78.5 Hyperlipidemia, unspecified; E66.01 Morbid (severe) obesity due to excess calories; Z68.42 Body mass index [BMI] 45.0-49.9, adult
CPT/HCPCS: 93242; 93306; Q9957

== ENCOUNTER → 2024-11-19 09:52 | Outpatient (BNV) | payer MEDICARE, OTHER, SELFPAY | PROVIDERS: PCP Physician Assistant Medical; Visit Provider Internal Medicine Cardiovascular Disease | DX: I35.0 Nonrheumatic aortic (valve) stenosis (principal); I34.81 Nonrheumatic mitral (valve) annulus calcification; I34.0 Nonrheumatic mitral (valve) insufficiency; I36.1 Nonrheumatic tricuspid (valve) insufficiency | CPT/HCPCS: 93306 ==

== ENCOUNTER 2024-11-20 10:26 | Outpatient (REF) | payer MEDICARE, OTHER, SELFPAY ==
--- OUTSIDE RECORDS SUMMARY | 2024-11-20 11:21 | XMS_ITS | Clinical Summary ---
Author Organization 175 [facility] Address [address] [place] [address] Phone Care Team Providers Care Golf Cart Attendant Name Role Phone Reina Lj Primary Care Provider [phone] Allergies Active Allergy Reactions Criticality Noted Date [...] Date Nocturnal hypoxia 01/24/2023 Overview (06/02/2024): 01/06/2023 [place] on CPAP showed: Low-dose SPO2 is 75%. Time spent less than 88% is 50 minutes Supplemental oxygen might be indicated if treatment study shows decreased oxygen as well. Obstructive sleep apnea syndrome 05/16/2017 Overview (06/02/2024): [facility] [place] Night Polysomnogram Date 03/03/2023. Wt 220#; [...] on CPAP of 10cm with N20 mask. [facility] Home Sleep Apnea Test: Date ; BMI [...] reflux disease 10/12/2016 Depression 05/28/2016 Dilated cardiomyopathy ([facility] V24, [facility] V28 ) 05/28/2016 Hypertension 05/28/2016 Polymyalgia rheumatica ([facility] V24) 05/28/2016 Medical History Medical History Date Comments PMR (polymyalgia rheumatica) ([facility] V24) HTN (hypertension) GERD (gastroesophageal reflux disease) Depression Dilated cardiomyopathy ([facility] V24, [facility] V28) about 5-6years diagnosed wit h Broken [...] 10:10 AM EST Office Visit Pulmonolgy - [place] 175 [facility] [address] [place] [address] Steffi Velazco NP [address] [facility] [address] [place] [address] Health Maintenance Due Date Last Done Comments [...] patient's age to complete this topic Insurance ,[id number] [facility] Care Teams Golf Cart Attendant Relationship Specialty Start Date End Date Lj Huang DO [address] [place] [phone] PCP - General Internal Medicine 05/01/16
== END 2024-11-20 10:27 | disposition home or self-care (01) ==
LOC: HO.MAMMO 10:26
PROVIDERS: PCP Physician Assistant Medical; Visit Provider Physician Assistant Medical
DX: Z12.31 Encounter for screening mammogram for malignant neoplasm of breast (principal)
CPT/HCPCS: 77063; 77067

== ENCOUNTER → 2024-11-20 10:45 | Outpatient (BNV) | payer MEDICARE, OTHER, SELFPAY | PROVIDERS: PCP Physician Assistant Medical; Visit Provider Internal Medicine | DX: Z12.31 Encounter for screening mammogram for malignant neoplasm of breast (principal) | CPT/HCPCS: 77063; 77067 ==

== ENCOUNTER 2024-12-23 09:57 | Outpatient (AMB) | payer MEDICARE, OTHER, SELFPAY ==
[2024-12-23 09:58] VITALS: BP 122/78; PULSE 68; BMI 41.5
--- NOTE | 2024-12-23 09:58 | A.OFFVIS_ITS ---
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 Morales Intake Note: New dx heart murmur and c/o fatigue with ekg c/o fatigue, sweating and sob Inspector Penetrant Required: No Allergies penicillamine Allergy (Unknown, Verified 09/14/24 10:25) Itching Medication List - Last Reconciled 12/23/24 by Mani Mason MD amlodipine 10 mg PO DAILY atorvastatin 10 mg PO BEDTIME bupropion HCl XL 300 mg PO DAILY cetirizine 10 mg PO DAILY cholecalciferol (vitamin D3) 50 mcg PO DAILY duloxetine 20 mg PO gabapentin 300 mg PO DAILY [id number] mg (krill oil) 1 cap PO DAILY losartan 50 mg PO DAILY meloxicam 15 mg PO DAILY metoprolol succinate ER 50 mg PO DAILY omeprazole 20 mg PO DAILY semaglutide (weight loss) 1 mg (0.5 mL) subcut QWEEK HPI Comments Details: Thank you for referring Libia in cardiology consultation today for symptoms of exertional shortness of breath and also symptoms fatigue. Patient is a 79 year female with prior history of morbid obesity, hypertension, hyperlipidemia as well as obstructive sleep apnea. She says she started noticing increased symptoms of fatigue which was similar to prior to diagnose as of sleep apnea. She then had evaluation by Pulmonary and was felt that she had appropriate treatment for sleep apnea and that was not the reason for her fatigue. She notices exertional shortness of breath although no symptoms of orthopnea, PND, leg edema. She is referred here for further evaluation. She did undergo an echocardiogram which showed normal LV ejection fraction with mild calcific aortic and mitral valve changes noted without significant pulmonary hypertension or valvular abnormalities. She also had a Holter monitor which showed frequent sinus bradycardia without any significant pauses. She had episode of ST- elevation with epigastric discomfort 9 years ago and had undergone a cardiac catheterization which at that time had shown that she might have had stress- induced cardiomyopathy. She has had no recurrence of those symptoms since. She is currently taking all medications and currently on full-dose amlodipine and half dose losartan for control of her blood pressure. She does have issues with anxiety/depression. She was recently started on Wegovy and says has lost about 15 lb. She is not regularly exercising. She does not recall ever having pulmonary function test performed. [facility] Medical History Sleep apnea Fatigue Heart murmur Morbid obesity with BMI of 45.0-49.9, adult Hypertension Dizziness and giddiness Hyperlipidemia Social History Patient Tobacco Use Status: Former Tobacco user Review of Systems Const Denies chills, Denies daytime sleepiness, Denies fatigue, Denies fever(s), Denies frequent falls, Denies poor appetite, Denies snoring, Denies stops breathing during sleep, Denies weakness, Denies weight gain and Denies weight loss Eyes Denies loss of vision ENT Denies dizziness and Denies hearing loss Card Denies chest pain, Denies claudication, Denies leg edema, Denies lightheadedness, Denies palpitations, Denies dyspnea, Denies dyspnea on exertion and Denies orthopnea Resp Denies cough, Denies excessive phlegm production, Denies dyspnea, Denies dyspnea on exertion, Denies snoring and Denies wheezing GI Denies abdominal pain, Denies hematochezia, Denies change in bowel habits, Denies nausea and Denies vomiting Denies urinary frequency and Denies dysuria Musc Denies arthralgias, Denies muscle weakness, Denies numbness and Denies other (frequent falls) Skin/Breast Denies nail changes and Denies rash Neuro Denies Abnormal speech present, Denies dizziness, Denies frequent falls, Denies loss of vision, Denies memory loss, Denies numbness and Denies weakness Psych Denies depression and Denies memory loss Endo Denies fatigue and Denies palpitations Nick/Lymph Reports easy bruising and Reports other (anemia) Aller/Immun Denies wheezing Physical Exam Vital Signs: Last Vital Signs Pulse 68 12/23/24 09:58 BP 122/78 12/23/24 09:58 BMI result Body Mass Index 41.5 Const General: cooperative, comfortable, no acute distress, alert, awake and well groomed Nutritional Appearance: obese morbidly obese Orientation/consciousness: patient oriented x3 Limitations: no limitations HEENT Head: Yes normocephalic and Yes atraumatic Neck Neck: Yes trachea midline, Yes supple and Yes no JVD Resp Effort & Inspection: normal respiratory effort Auscultation: clear to auscultation bilaterally Cardio Jugular venous distension: no JVD Palpation: normal PMI Rate: regular rate Rhythm: regular rhythm Heart sounds: S1 normal heart sound present, S2 normal heart sound present, no click, no gallops and Murmur heart sound present systolic early GI Auscultation: normal bowel sounds Skin General skin exam: no rashes or lesions noted Neuro General: patient oriented x3 and no focal motor deficits Speech: No Abnormal speech present Extrem General: Yes no clubbing, cyanosis or edema Office Procedures EKG Details: EKG shows normal sinus rhythm with poor R-wave progression most likely lead placement and body habitus 94803-[id number], Complete Assessment & Plan Assessment & Plan (1) Short of breath on exertion: Code(s): R06.02 - Shortness of breath Category: Medical Plan: Patient with symptoms exertional shortness of breath most likely related to her weight and possibly underlying pulmonary parenchymal disease. Although she has multiple risk factors for obstructive coronary artery disease. Her cardiac catheterization was remote and 9 years ago. Will suggest a exercise myocardial perfusion imaging to evaluate for myocardial ischemia. Also suggest pulmonary function test to rule out pulmonary parenchymal disease. If this is negative she is encouraged to increase activity level and participate in a more aggressive weight loss program which could explain her exertional shortness of breath related to deconditioning as well as restrictive pulmonary defect from her obesity. (2) Fatigue: Code(s): R53.83 - Other fatigue Category: Medical Plan: Symptoms of fatigue not related to untreated sleep apnea. Possibly related to sinus bradycardia induced by metoprolol therapy. Will reduce metoprolol to 25 mg daily. Continue taper and discontinue metoprolol if heart rate remains slow. Check TSH through your office. (3) Hypertension: Code(s): I10 - Essential (primary) hypertension Category: Medical Plan: Hypertension which is currently not well optimized. Will reduce metoprolol as about to reduce symptoms possibly associated with chronotropic competence. Will increase losartan to 100 mg daily and continue amlodipine to 10 mg daily. If she remains persistently hypertensive consider adding hydrochlorothiazide to her regimen. Check BMP in 1 week's time. Advised to monitor blood pressure at home maintain a log. Continue CPAP therapy. Continue participate in weight loss program. Will follow up in the clinic in 2 months time, sooner p.r.n.. Thank you for allowing me to partake in her care Orders: Orders CA stress test Today R06.02 - Shortness of breath PFT pulmonary function test Today R06.02 - Shortness of breath NM cardiolite stress test 2 Weeks R06.02 - Shortness of breath, R07.9 - Chest pain, unspecified Medications: New losartan 100 mg PO DAILY 30 tabs 5RF Changed From metoprolol succinate ER 50 mg PO DAILY 90 tabs 1RF To metoprolol succinate ER 25 mg (1/2 x 50 mg) PO DAILY 90 tabs 1RF Coding Level of Care Code New Pt Level 4 (60771) Complex EM visit Add On G2211 Diagnoses Short of breath on exertion R06.02 Fatigue R53.83 Hypertension I10 CPT Codes EKG - CPT: 08843-[id number], Complete ([id number])
--- OUTSIDE RECORDS SUMMARY | 2024-12-23 11:20 | XMS_ITS | Clinical Summary ---
Author Organization 175 [facility] Address [address] [place] [address] Phone Care Team Providers Care Escrow Manager Name Role Phone Reina Lj Primary Care Provider [phone] Allergies Active Allergy Reactions Criticality Noted Date [...] Date Nocturnal hypoxia 01/24/2023 Overview (06/02/2024): 01/06/2023 [place] on CPAP showed: Low-dose SPO2 is 75%. Time spent less than 88% is 50 minutes Supplemental oxygen might be indicated if treatment study shows decreased oxygen as well. Obstructive sleep apnea syndrome 05/16/2017 Overview (06/02/2024): [facility] [place] Polysomnogram Date 03/03/2023. Wt 220#; [...] on CPAP of 10cm with N20 mask. [facility] Home Sleep Apnea Test: Date ; BMI [...] reflux disease 10/12/2016 Depression 05/28/2016 Dilated cardiomyopathy ([facility] V24, [facility] V28 ) 05/28/2016 Hypertension 05/28/2016 Polymyalgia rheumatica ([facility] V24) 05/28/2016 Medical History Medical History Date Comments PMR (polymyalgia rheumatica) ([facility] V24) HTN (hypertension) GERD (gastroesophageal reflux disease) Depression Dilated cardiomyopathy ([facility] V24, [facility] V28) about 5-6years diagnosed wit h [...] 10:10 AM EST Office Visit Pulmonolgy - [place] [address] [facility] [address] [place] [address] Steffi Velazco NP [address] [facility] [facility] [address] [place] [address] Health Maintenance Due Date Last Done Comments [...] patient's age to complete this topic Insurance ,[address] [id number] MEDICARE [facility] Care Teams Escrow Manager Relationship Specialty Start Date End Date Lj Huang DO [address] [place] [phone] PCP - General Internal Medicine 05/01/16
== END 2024-12-23 10:28 | disposition home or self-care (01) ==
LOC: HO.HCS 09:57
PROVIDERS: PCP Internal Medicine; Visit Provider Internal Medicine Cardiovascular Disease
DX: R06.02 Shortness of breath (principal); R53.83 Other fatigue; I10 Essential (primary) hypertension
CPT/HCPCS: 93010; 99214; G2211

== ENCOUNTER → 2024-12-23 09:57 | Outpatient (BNVA) | payer MEDICARE, OTHER, SELFPAY | PROVIDERS: PCP Internal Medicine; Visit Provider Internal Medicine Cardiovascular Disease | DX: R06.02 Shortness of breath (principal); R53.83 Other fatigue; I10 Essential (primary) hypertension; R94.31 Abnormal electrocardiogram [ECG] [EKG] | CPT/HCPCS: 93005; 99212 ==

== ENCOUNTER 2025-01-12 13:44 | Outpatient (AMB) | payer MEDICARE, OTHER, SELFPAY ==
[2025-01-12 13:45] VITALS: BP 158/71; PULSE 72; RESP 16; TEMP 36.4; O2SAT 96; BMI 40.8
--- NOTE | 2025-01-12 13:45 | MHC.PC.OV ---
Vital Signs 01/12/25 13:45 Height 5 ft 1.42 in Weight 219 lb BMI 40.8 BP 158/71 H Respiration 16 Pulse 72 Pulse Source Pulse Oximeter Temp 97.6 F Temp Source Temporal Artery Scan Pulse Oximetry (%) 96 Oxygen Delivery Method Room Air Intake Visit Reasons: follow up Public Services Assistant Required: No Accompanied by: Self / Same As Patient Allergies Penicillins Allergy (Mild, Verified 01/12/25 13:52) Itching penicillamine Allergy (Unknown, Verified 01/12/25 13:46) Itching Tobacco use date assessed: 01/12/25 Fall risk assessment: 1 Fall in past year Last assessed Fall Risk: 01/12/25 Dental Screening Dental Screen Date: 01/12/25 Did you have a dental visit in the last 12 months?: Yes Did you have a dental problem in the last 6 months where you did not have access to dental care?: No Was dental information given to patient?: Patient has dentist (patient has upper dentures) [facility] Medical History Sleep apnea Fatigue Heart murmur Morbid obesity with BMI of 45.0-49.9, adult Hypertension Dizziness and giddiness Hyperlipidemia Surgical History History of colonoscopy (~10/05/16) Family History (Updated 01/12/25 @ 13:47 by MARIIA Nguyen) Father No problems noted. Mother No problems noted. Social History (Updated 01/12/25 @ 13:56 by MARIIA Nguyen) Housing: Assisted Living Facility Alcohol intake: current Alcohol intake frequency: does not drink Patient Tobacco Use Status: Former Tobacco user service: No Current occupational status: retired Cognitive needs: No Hearing needs: Yes (b/l hearing aids) Vision needs: Yes (rx glasses) Questionnaire PHQ-9 Over the last 2 weeks, how often have you been bothered by any of the following problems? 1. Little interest or pleasure in doing things: not at all 2. Feeling down, depressed, or hopeless: not at all 3. Trouble falling or staying asleep, or sleeping too much: not at all 4. Feeling tired or having little energy: not at all 5. Poor appetite or overeating: not at all 6. Feeling bad about yourself - or that you are a failure or have let yourself or your family down: not at all 7. Trouble concentrating on things, such as reading the newspaper or watching television: not at all 8. Moving or speaking so slowly that other people could have noticed. Or the opposite - being so fidgety or restless that you have been moving around a lot more than usual: not at all 9. Thoughts that you would be better off or of hurting yourself in some way: not at all Total score: 0 Source: Developed by Drs. Lj Fonseca, Letha Angel, Efren Stephenson and colleagues, with an educational serenity from [employer]. Thrive Questionnaire Date Thrive assessed: 01/12/25 I am a: Patient What is your living situation today?: I have a steady place to live Within the past 12 months, did the food you bought not last and you didn't have the money to get more?: Never true Within the past 12 months, did you worry whether your food would run out before you got money to buy more?: Never true Do you have trouble paying for medicines?: No Do you have trouble getting transportation to medical appointments?: No Do you have trouble paying your heating and electricity bill?: No Do you have trouble taking care of your child, family member or friend?: No Do you have trouble with day-to-day activities such as bathing, preparing meals, shopping, managing finances, etc.?: No Are you currently unemployed and looking for a job?: No Are you interested in more education?: No Please select the resources that you would like help with: None THRIVE Score: 0 AUDIT C Alcohol Use Questionnaire (AUDIT-C) 1. How often do you have a drink containing alcohol?: Never 3. How often do you have six or more drinks on one occasion?: Never Total Score: 0 FAITH-7 AMB Questionnaire FAITH-7 Date FAITH - 7 assessed: 01/12/25 Feeling nervous, anxious, or on edge: 0 = Not at all Not being able to stop or control worryin = Not at all Worrying too much about different things: 0 = Not at all Trouble relaxin = Not at all Being so restless that it is hard to sit still: 0 = Not at all Becoming easily annoyed or irritable: 0 = Not at all Feeling afraid as if something awful might happen: 0 = Not at all Total FAITH-7 score (0-4 normal; 5-9 mild; 10-14 moderate; 15-21 severe): 0 Source: Developed by Drs. Lj Fonseca, Letha Angel, Efren Stephenson and colleagues, with an educational serenity from [employer]. Physical exam (Primary Care) Vital Signs: Last Vital Signs Temp 97.6 F 01/12/25 13:45 Pulse 72 01/12/25 13:45 Resp 16 01/12/25 13:45 BP 158/71 H 01/12/25 13:45 Pulse Ox 96 01/12/25 13:45 Oxygen Delivery Method Room Air 01/12/25 13:45 BMI result Body Mass Index 40.8 Tobacco/Smoking Status: Tobacco use Status Tobacco use date assessed 01/12/25 01/12/25 13:47 Patient Tobacco Use Status Former Tobacco user 01/12/25 13:56 PHQ-9: PHQ-9 Score PHQ-9: Total score 0 01/12/25 13:47 Thrive Assessment: Date of Thrive Assessment Date Thrive assessed 01/12/25 01/12/25 13:47 Coding Level of Care Code Est Pt Level 4 (29878) Complex EM visit Add On G2211 Diagnoses Hypertension I10 Assessment & Plan Assessment & Plan (1) Hypertension: Code(s): I10 - Essential (primary) hypertension Category: Medical Plan: Compliant with meds, Continue current meds, Plan History of Present Illness - The patient is an 80-year-old female presenting with fatigue. - She notes an extreme, pervasive fatigue similar to symptoms experienced before her prior sleep apnea diagnosis. - Despite compliance with CPAP therapy, she reports fatigue persisting, with no changes attributed to the recent initiation of semaglutide therapy. - She experiences shortness of breath on exertion, occasionally having difficulty taking deep breaths, possibly cardiovascular in nature, given the current cardiology assessments underway. - The patient has undergone multiple tests with no significant findings yet but remains engaged in ongoing evaluations. - Past hospitalization for a gut bacterial infection that spread to her bloodstream required IV antibiotics, adding complexity to her current fatigue. - Hypertension management was adjusted pre-emptively amidst current cardiac investigations. Social History - Resides at [facility] in an independent and assisted living facility. - Avid reader and enjoys watching [employer]. - Engages in limited physical activity, intermittently uses a treadmill for up to 20 minutes. - Recently reduced carbohydrate intake significantly, impacting bowel habits. - Undergoing semaglutide injection therapy and reports a weight loss of 24-25 pounds over four months. Review of Systems - Constitutional: Reports extreme fatigue. - Respiratory: Reports shortness of breath on exertion. - Cardiovascular: Reports fatigue and shortness of breath impacting activity. - Endocrine: Denies new symptoms related to thyroid dysfunction; recent weight loss. - Gastrointestinal: Reports recent bacterial gut infection; current dietary changes affecting bowel habits. - Psychiatric: Denies current depression; ongoing long-term psychotherapy. Physical Exam General: Cooperative and healthy appearing Nutritional Appearance: Well nourished Orientation/consciousness: Patient oriented x3 Limitations: No limitations Head: Normal to inspection General: Appearance normal, both eyes and all related structures Neck: Normal visual inspection Chest: Normal palpation of entire chest wall Respiratory: Shortness of breath on exertion, sometimes hard to get a full breath. ormal respiratory effort Neurology: Patient oriented x3. Recent hospitalization due to a fall; extensive tests revealed a bacterial infection in the gut that had spread to the blood. Follow-up required for liver function and a 6-mm finding on the lungs. Results - Labs: Blood work to monitor liver function post-antibiotics. - Imaging: Awaiting nuclear stress test; 6-mm pulmonary nodule follow-up with scheduled CAT scan. Plan 1. Fatigue - Ongoing cardiovascular assessment; pending nuclear stress test. - Continue with adjusted medication regimen. - Evaluate further upon completion of cardiology assessment. 2. Sleep Apnea - Maintain compliance with CPAP therapy. - Monitor for reduction of fatigue symptoms post cardiology evaluation. 3. Hypertension - Follow the adjusted regimen with increased losartan and decreased metoprolol. 4. Bacterial Infection In The Gut - Await liver function results; completed IV antibiotic treatment. 5. Pulmonary Nodule - Scheduled follow-up CAT scan in six months to monitor nodule progression. Discussion Notes During our visit, we discussed the persistent fatigue and ongoing cardiology evaluations. I explained that the tests performed so far showed no significant abnormalities, but the nuclear stress test and a pulmonary function test are pending. 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 We discussed the possible relationship between her symptoms and dietary changes, although her fatigue predates these modifications. I advised her to follow through with the cardiology workup and remain vigilant about any new symptoms. I confirmed the recent hospitalization and instructed ongoing monitoring of her liver function post-antibiotic treatment. I advised follow-up with primary care for her liver evaluation and reiterated the non-urgent nature of the pulmonary nodule, with a CAT scan scheduled to observe any changes. I reassured her that we could explore further options depending on the outcomes of her ongoing evaluations. Patient Instructions - Continue taking your medications as prescribed, including adjusted doses of losartan and metoprolol. - Complete the scheduled nuclear stress test and pulmonary function test. - Follow up on liver function tests with primary care after antibiotic treatment. - Attend the CAT scan in six months to monitor the pulmonary nodule. - Maintain compliance with CPAP therapy. - Monitor your symptoms and report any new or worsening issues. - Stay hydrated and adjust your diet for adequate fiber intake. - Follow up for further evaluation and clarification of the fatigue once the cardiology results are available. Orders: Orders Liver Panel 01/12/25 I10 - Essential (primary) hypertension
--- OUTSIDE RECORDS SUMMARY | 2025-01-12 16:15 | XMS_ITS | Clinical Summary ---
Author Organization 175 [facility] Address [address] [place] [address] Phone Care Team Providers Care Certified Phlebotomist Name Role Phone Reina Lj Primary Care Provider [phone] Allergies Active Allergy Reactions Criticality Noted Date [...] Date Nocturnal hypoxia 01/24/2023 Overview (06/02/2024): 01/06/2023 [place] on CPAP showed: Low-dose SPO2 is 75%. Time spent less than 88% is 50 minutes Supplemental oxygen might be indicated if treatment study shows decreased oxygen as well. Obstructive sleep apnea syndrome 05/16/2017 Overview (06/02/2024): [facility] [place] Night Polysomnogram Date 03/03/2023. Wt 220#; [...] on CPAP of 10cm with N20 mask. [facility] Home Sleep Apnea Test: Date ; [...] reflux disease 10/12/2016 Depression 05/28/2016 Dilated cardiomyopathy ([facility] V24, [facility] V28 ) 05/28/2016 Hypertension 05/28/2016 Polymyalgia rheumatica ([facility] V24) 05/28/2016 Medical History Medical History Date Comments PMR (polymyalgia rheumatica) ([facility] V24) HTN (hypertension) GERD (gastroesophageal reflux disease) Depression Dilated cardiomyopathy ([facility] V24, [facility] V28) about 5-6years diagnosed wit h [...] 10:10 AM EST Office Visit Pulmonolgy - [place] [address] [facility] [address] [place] [address] Steffi Velazco NP [address] [facility] [address] [place] [address] Health Maintenance Due Date Last Done Comments [...] patient's age to complete this topic Insurance ,[id number] [facility] Member Subscriber Plan / Payer (Ef fective 2023-Present) Name:Hamzah Ruth A Relation to Subscriber:Spouse Name:MANUELA TUCKER Date of :1945 (Home) Address: [address] [place] [id number] Payer ID:[id number] Group ID:Not on file Type:Not on file Address: [place] [id number] Care Teams Certified Phlebotomist Relationship Specialty Start Date End Date Lj Huang DO [address] [place] [phone] PCP - General Internal Medicine 05/01/16
== END 2025-01-12 14:34 | disposition home or self-care (01) ==
LOC: HO.HMCSH 13:44
PROVIDERS: PCP Internal Medicine; Visit Provider Internal Medicine
DX: I10 Essential (primary) hypertension (principal)

== ENCOUNTER → 2025-01-12 13:44 | Outpatient (BNVA) | payer MEDICARE, OTHER, SELFPAY | PROVIDERS: PCP Internal Medicine; Visit Provider Internal Medicine | DX: I10 Essential (primary) hypertension (principal) | CPT/HCPCS: 99212 ==

== ENCOUNTER 2025-01-23 08:44 | Outpatient (REF) | payer MEDICARE, OTHER, SELFPAY ==
[2025-01-23 09:20] LABS: MANUAL DIFF FLAG NO
[2025-01-23 09:24] LABS: Basophils Percent Auto 0.2 % (0-2); Eosinophils Absolute Auto 0.1 X10*3/uL (0.0-0.4); Eosinophils Percent Auto 0.7 % (0-4); Hematocrit 36.9 % (37.0-47.0); Hemoglobin 12.6 g/dl (12.0-16.0); Imm Gran Abs Auto 0.06 X10*3/uL (0.00-0.03); Imm Gran Pct Auto 0.4 % (0.0-0.4); Lymphocytes Absolute Auto 0.9 X10*3/uL (1.2-4.9); Lymphocytes Percent Auto 5.6 % (20-40); Mean Corpuscular HGB Conc 34.1 g/dl (31.0-35.0); Mean Corpuscular Hemoglobin 31.2 pg (27.0-33.0); Mean Corpuscular Volume 91.3 fL (80.0-98.0); Mean Platelet Volume 9.9 fL (9.4-12.3); Monocytes Absolute Auto 0.6 X10*3/uL (0.1-1.2); Monocytes Percent Auto 3.7 % (2-11); Neutrophils Absolute Auto 13.8 x10*3/uL (2.0-8.3); Neutrophils Percent Auto 89.4 % (45-73); Platelet Count 195 X10*3/uL (160-400); Red Blood Count 4.04 X10*6/uL (4.20-5.50); Red Cell Distribution Width 12.9 % (11.0-16.0); White Blood Count 15.5 X10*3/uL (4.8-10.8)
[2025-01-23 09:43] LABS: Alanine Aminotransferase 535 U/L (0-31); Alkaline Phosphatase 285 U/L (39-117); Anion Gap 13 (12-20); Aspartate Amino Transferase 153 U/L (5-31); Bilirubin Direct 1.9 mg/dL (0.0-0.5); Blood Urea Nitrogen 27 mg/dL (9-16); C Reactive Protein 21.17 mg/dL (< or = 0.50); Calcium 9.4 mg/dL (8.4-10.2); Carbon Dioxide 22 mmol/L (22-29); Chloride 104 mmol/L (96-108); Estimated Glomerular Filt Rate 45; Glucose Random 106 mg/dL (60-115); Potassium 3.5 mmol/L (3.3-5.1); Sodium 135 mmol/L (135-145); Total Protein 7.7 g/dL (6.5-8.0)
[2025-01-23 10:04] LABS: Erythrocyte Sedimentation Rate 89 MM/HR (0-20)
== END 2025-01-23 08:45 | disposition home or self-care (01) ==
LOC: HO.LAB 08:44
PROVIDERS: Absent Provider Physician Assistant Medical; PCP Internal Medicine; Visit Provider Internal Medicine
DX: Z00.00 Encounter for general adult medical examination without abnormal findings (principal); I10 Essential (primary) hypertension; R78.81 Bacteremia; B96.20 Unspecified Escherichia coli [E. coli] as the cause of diseases classified elsewhere
CPT/HCPCS: 36415; 80053; 82248; 85025; 85652; 86140; 87040

== ENCOUNTER 2025-01-25 10:15 | Emergency (ER) | payer MEDICARE, OTHER, SELFPAY ==
--- NOTE | ~2025-01-25 | CT_ITS ---
EXAMINATION: CT ABDOMEN AND PELVIS WITHOUT CONTRAST CLINICAL INFORMATION: Abdominal pain. DLP: 985 mGY*cm COMPARISON: None available. TECHNIQUE: Multidetector volumetric imaging was performed from the superior aspect of the liver through the pubic symphysis. Sagittal and coronal reformatted images were obtained on the technologist's workstation. This CT examination was performed using dose optimization techniques as appropriate, variously including the following: *Automated exposure control *Adjustment of mA and/or kV according to patient size (this includes techniques or standardized protocols for targeted exams where dose is matched to indication/reason for exam; i.e. extremities or head) *Use of iterative reconstruction technique FINDINGS: LUNG BASES: Incompletely imaged solid nodular density in the lateral right lung base measured 5x6 mm. LIVER, GALLBLADDER, AND BILIARY TREE: The liver is normal in size, shape, and attenuation. No focal hepatic lesion or biliary ductal dilatation is present. There are clips from cholecystectomy. PANCREAS: Unremarkable. SPLEEN: Unremarkable. ADRENAL GLANDS: Unremarkable. KIDNEYS AND URETERS: Vascular calcifications are present in the left greater than right kidney. BLADDER: Unremarkable. GASTROINTESTINAL TRACT: Scattered diverticula are present in the distal transverse colon through the sigmoid colon. The appendix is not well-demonstrated. There is a eugene mesentery centrally along the SMA vasculature. ABDOMINAL WALL: No significant hernia is appreciated. LYMPH NODES: Normal. VASCULAR: Moderate atherosclerotic ossifications. PELVIC VISCERA: Uterus and ovaries unremarkable. OSSEOUS STRUCTURES: Chronic burst fracture of T12 and superior endplate compression fracture of L4 are present. There is multilevel degenerative disc disease and facet arthropathy. Moderate SI degeneration is noted. CT/CT abdomen pelvis wo IV con IMPRESSION: Changes of a eugene mesentery are noted. This is a nonspecific finding. It can be related to inflammation, edema, and less likely tumor infiltration. Diverticulosis without clear evidence of diverticulitis. 5 x 6 mm solid pulmonary nodule in the lateral base of the right lower lobe. No further follow-up is indicated per Fleischner Society recommendations, unless the patient falls into a high risk category, in which case a 12 month follow-up CT chest without contrast is optional. High risk patients includes those with a history of smoking, first-degree relative with lung cancer, or exposure to uranium, radon, or asbestos. Fleischner guidelines were followed. Electronically signed by: Estevan Cabrera MD 01/25/2025 02:21 PM EDT
[2025-01-25 10:23] VITALS: BP 109/83; PULSE 83; RESP 18; TEMP 36.4; O2SAT 96; BMI 38.4
[2025-01-25 10:47] LABS: MANUAL DIFF FLAG NO
[2025-01-25 10:48] LABS: Basophils Percent Auto 0.4 % (0-2); Eosinophils Absolute Auto 0.2 X10*3/uL (0.0-0.4); Eosinophils Percent Auto 1.9 % (0-4); Hemoglobin 12.7 g/dl (12.0-16.0); Imm Gran Abs Auto 0.03 X10*3/uL (0.00-0.03); Imm Gran Pct Auto 0.4 % (0.0-0.4); Lymphocytes Absolute Auto 0.8 X10*3/uL (1.2-4.9); Mean Corpuscular HGB Conc 35.3 g/dl (31.0-35.0); Mean Corpuscular Hemoglobin 31.8 pg (27.0-33.0); Mean Platelet Volume 9.7 fL (9.4-12.3); Monocytes Absolute Auto 0.6 X10*3/uL (0.1-1.2); Monocytes Percent Auto 7.8 % (2-11); Neutrophils Absolute Auto 6.4 x10*3/uL (2.0-8.3); Neutrophils Percent Auto 79.5 % (45-73); Platelet Count 210 X10*3/uL (160-400); Red Cell Distribution Width 12.4 % (11.0-16.0)
[2025-01-25 11:06] LABS: Alanine Aminotransferase 227 U/L (0-31); Albumin Level 4.1 g/dL (3.5-5.0); Alkaline Phosphatase 200 U/L (39-117); Anion Gap 12 (12-20); Aspartate Amino Transferase 30 U/L (5-31); Bilirubin Total 1.2 mg/dL (0.0-1.0); Blood Urea Nitrogen 12 mg/dL (9-16); Calcium 9.7 mg/dL (8.4-10.2); Carbon Dioxide 24 mmol/L (22-29); Chloride 104 mmol/L (96-108); Creatinine Clr Calc Pharmacy 48.7; Estimated Glomerular Filt Rate 54; Glucose Random 103 mg/dL (60-115); Potassium 3.6 mmol/L (3.3-5.1); Sodium 136 mmol/L (135-145); Total Protein 7.9 g/dL (6.5-8.0)
--- NOTE | 2025-01-25 12:36 | ED.ABDPAIN ---
HPI - Abdominal Pain General Chief Complaint: Abdominal Pain Stated Complaint: Abnormal Labs Sent by Dr Martinez Time Seen by Provider: 01/25/25 12:22 Source: patient Mode of arrival: ambulatory Limitations: no limitations History of Present Illness ED Provider: DR. Bowles HPI narrative: 80-year-old female presented with fatigue and generalized weakness, patient had a recent hospitalization at [facility] or GI infection and bacteremia days IV course of antibiotic in the hospital and then was discharged on oral antibiotic, patient is now complaining of general, on and off upper abdominal pain, p.o. intake has been decreased since was discharged from [facility], however declined any fever, no chills, no nausea, no vomiting, no diarrhea. Patient on 01/23 seen by her PCP had a routine workup and was told there is abnormal values in her blood result patient got anxious and came to the ED for further evaluation. and blood culture that the preliminary result of the blood culture is negative after 48 hours now. Past surgical history significant for cholecystectomy more than 20 years ago. Patient patient reported normal urination with no dysuria, last bowel movement was this morning, passing gas. Related Data Home Medications ?Medication ?Instructions ?Recorded ?Confirmed bupropion HCl 300 mg 24 hr tablet, 300 mg PO DAILY 05/12/20 12/23/24 extended release cetirizine 10 mg tablet 10 mg PO DAILY 05/12/20 12/23/24 meloxicam 15 mg tablet 15 mg PO DAILY 05/12/20 12/23/24 cholecalciferol (vitamin D3) 50 50 mcg PO DAILY 08/26/24 12/23/24 mcg (2,000 unit) capsule krill 500 mg-omega-3 150 mg-dha 45 1 cap PO DAILY 08/26/24 12/23/24 mg-epa 75 [id number] capsule (krill oil) omeprazole 20 mg capsule,delayed 20 mg PO DAILY 08/26/24 12/23/24 release duloxetine 20 mg capsule,delayed 20 mg PO 12/23/24 12/23/24 release Previous Rx's ?Medication ?Instructions ?Recorded atorvastatin 10 mg tablet 10 mg PO BEDTIME #90 tabs 09/14/24 amlodipine 10 mg tablet 10 mg PO DAILY #90 tabs 11/12/24 gabapentin 300 mg capsule 300 mg PO DAILY #90 caps 11/25/24 losartan 100 mg tablet 100 mg PO DAILY #30 tabs 12/23/24 metoprolol succinate 50 mg 25 mg (1/2 x 50 mg) PO DAILY #90 12/23/24 tablet,extended release 24 hr tabs semaglutide (weight loss) 1.7 1.7 mg (0.75 mL) subcut QWEEK #3 mL 01/14/25 mg/0.75 mL subcutaneous pen injector Allergies Allergy/AdvReac Type Severity Reaction Status Date / Time Penicillins Allergy Mild Itching Verified 01/25/25 10:25 penicillamine Allergy Unknown Itching Verified 01/25/25 10:25 Review of Systems Review of Systems All other systems are reviewed and are negative Constitutional: Reports as per HPI and Reports no additional constitutional complaints Eyes: Reports as per HPI and Reports no additional eye complaints Reports system reviewed and no additional complaints, except as documented Cardiovascular: Reports as per HPI and Reports no additional cardiovascular complaints Respiratory: Reports as per HPI and Reports no additional respiratory complaints Gastrointestinal: Reports as per HPI and Reports no additional gastrointestinal complaints Genitourinary: Reports no additional female genitourinary complaints Musculoskeletal: Reports no additional musculoskeletal complaints Skin/Breast: Reports system reviewed and no additional complaints, except as docu Psychiatric: Reports no additional psychiatric complaints Endocrine: Reports no additional endocrine complaints Hematologic/Lymphatic: Reports no additional hematologic/lymphatic complaints Allergic/Immunologic: Reports no additional allergic/immunologic complaints Reports system reviewed and no additional complaints, except as documented and Reports Abnormal speech present [facility] Past Medical History Medical History E coli bacteremia Sleep apnea Fatigue Heart murmur Morbid obesity with BMI of 45.0-49.9, adult Hypertension Dizziness and giddiness Hyperlipidemia Surgical History History of colonoscopy (~10/05/16) Family History Family History Father No problems noted. Mother No problems noted. Social History Social History Housing: Assisted Living Facility Alcohol intake: current Alcohol intake frequency: holidays/special occasions only Patient Tobacco Use Status: Former Tobacco user Smoked in Last 30 Days: No Use of substances other than those prescribed or required for medical reasons: No Advance Directives: No Advance Directives Information Provided: Yes service: No Current occupational status: retired Cognitive needs: No Hearing needs: Yes (b/l hearing aids) Vision needs: Yes (rx glasses) Physical Exam ED Vital Signs: Vital Signs - 24 hr 01/25/25 10:23 01/25/25 13:13 Temperature 97.5 F 98.1 F Pulse Rate 83 72 Respiratory Rate 18 18 Blood Pressure 109/83 138/72 Pulse Oximetry 96 96 Oxygen Delivery Method Room Air Room Air BMI result Body Mass Index 38.4 Vital signs have been reviewed and appear to be correct. Blood pressure elevated. Heart rate normal. Respiratory rate normal. Temperature normal. Oxygen saturation normal. Appearance: Alert. Oriented X3. No acute distress. Head: Normal external exam. Normocephalic. Atraumatic. No Wheatley signs noted. No raccoon eyes noted Eyes: PERRLA. EOMI. Conjunctiva and sclera normal. Eyelids normal. ENT: TM's Normal. Pharynx normal. Uvula midline. Moist mucous membranes. No trismus noted. No drooling noted. No muffled voice noted. Neck: Normal inspection. Neck supple. FROM. No adenopathy. Thyroid Normal. No meningeal signs. No neck mass noted. CVS: Normal heart rate and rhythm. Heart sound normal. No murmurs noted. Pulses normal throughout. Respiratory: No respiratory distress. Painless inspiration. Breath sounds normal. No wheezes/rales/rhonchi noted. Chest nontender. No accessory muscle usage noted or decreased air movement noted. Abdomen: Soft and nontender. Bowel sounds normal in all 4 quadrants. No distention noted. No organomegaly noted. No visible injury noted. Back: No CVA tenderness. Full range of motion noted. Skin: Skin warm and dry. Normal skin color. Normal skin turgor. No rashes/lesions/lacerations noted. Extremities: No lower extremity edema. Extremities exhibit normal range of motion. Extremities nontender. Neuro: Oriented X 3. Cranial nerve exam: II-XII are grossly intact No motor deficit. No sensory deficit. Reflexes normal. Course Reevaluation(s) Reevaluation #1: Labs were sent by PCP on 01/23 showed leukocytosis that is improved today and elevation of total bilirubin to 3.1 now is 1.2, negative blood culture after 48 hours. Patient do not have dysuria, frequency urination was encouraged to drink plenty of fluids for leuko esterase in the urine. Patient instructed to return if worsening of abdominal pain or any symptoms, otherwise to follow-up with her PCP. Time: 14:51 Medical Decision Making Differential Diagnosis Differential Diagnoses: The differential diagnosis associated with the presentation includes (Colitis, diverticulitis, perforated viscus, UTI, pyelonephritis, SBO, electrolyte derangement, anemia.) Admission/Observation Consideration of admission/observation: Escalation of care including admission/observation considered Lab Data MDM Lab Attestation statement: I reviewed the patient's lab results. 01/25/25 10:42 01/25/25 10:42 Labs: Lab Results 01/25/25 01/25/25 Range/Units 10:42 14:04 WBC 8.0 (4.8-10.8) X10*3/uL RBC 4.00 L (4.20-5.50) X10*6/uL Hgb 12.7 (12.0-16.0) g/dl Hct 36.0 L (37.0-47.0) % MCV 90.0 (80.0-98.0) fL MCH 31.8 (27.0-33.0) pg MCHC 35.3 H (31.0-35.0) g/dl RDW 12.4 (11.0-16.0) % Plt Count 210 (160-400) X10*3/uL MPV 9.7 (9.4-12.3) fL Immature Gran % (Auto) 0.4 (0.0-0.4) % Neut % (Auto) 79.5 H (45-73) % Lymph % (Auto) 10.0 L (20-40) % [place] % (Auto) 7.8 (2-11) % Eos % (Auto) 1.9 (0-4) % Baso % (Auto) 0.4 (0-2) % Lymph # (Auto) 0.8 L (1.2-4.9) X10*3/uL [place] # (Auto) 0.6 (0.1-1.2) X10*3/uL Eos # (Auto) 0.2 (0.0-0.4) X10*3/uL Baso # (Auto) 0.0 (0.0-0.2) X10*3/uL Abs Immat Gran (auto) 0.03 (0.00-0.03) X10*3/uL Absolute Neuts (auto) 6.4 (2.0-8.3) x10*3/uL Absolute Nucleated RBC 0.000 (0.0-0.012) X10*3/uL Nucleated RBC % (auto) 0.0 (0.0-0.2) /100WBC Sodium 136 (135-145) mmol/L Potassium 3.6 (3.3-5.1) mmol/L Chloride 104 (96-108) mmol/L Carbon Dioxide 24 (22-29) mmol/L Anion Gap 12 (12-20) BUN 12 (9-16) mg/dL Creatinine 0.99 (0.5-1.4) mg/dL Estim Creat Clear Calc 48.7 Estimated GFR 54 Random Glucose 103 (60-115) mg/dL Calcium 9.7 (8.4-10.2) mg/dL Total Bilirubin 1.2 H (0.0-1.0) mg/dL AST 30 (5-31) U/L ALT 227 H (0-31) U/L Alkaline Phosphatase 200 H (39-117) U/L Total Protein 7.9 (6.5-8.0) g/dL Albumin 4.1 (3.5-5.0) g/dL Urine Color Dark Yellow Urine Appearance Cloudy Urine pH 5.5 (5.0-9.0) Ur Specific [place] 1.015 (1.005-1.025) Urine Protein 30 (1+) H (Neg-Trace) mg/dL Urine Glucose (UA) Negative (Negative) mg/dL Urine Ketones Trace (Negative) mg/dL Urine Blood Negative (Negative) Urine Nitrite Negative (Negative) Ur Leukocyte Esterase Large (3+) H (Negative) Urine RBC 3-5 H (0-2) /HPF Urine WBC 11-20 (0-5) /HPF Ur Squamous Epith Cells >20 (0-2) /HPF Urine Bacteria 1+ (None Seen) Hyaline Casts 3-5 (0-2) /LPF Independent Interpretation I performed an independent interpretation of an: CT Scan (Abdomen and pelvis:Changes of a eugene mesentery are noted. This is a nonspecific finding. It can be related to inflammation, edema, and less likely tumor infiltration. Diverticulosis without clear evidence of diverticulitis. 5 x 6 mm solid pulmonary nodule in the lateral base of the right lowe) Radiology Impression Discussion of test interpretation with radiology: I have reviewed the radiologist's reading. Discharge Plan Discharge Clinical Impression: Fatigue, Abdominal pain Patient Disposition: Home, Self-Care Instructions: Abdominal Pain (ED) Prescriptions: No Action amlodipine 10 mg tablet 10 mg PO DAILY Qty: 90 1RF gabapentin 300 mg capsule 300 mg PO DAILY Qty: 90 1RF semaglutide (weight loss) 1.7 mg/0.75 mL pen injector 1.7 mg subcut QWEEK Qty: 3 0RF Rx Instructions: administer weeks 5 through 8 of therapy meloxicam 15 mg tablet 15 mg PO DAILY cetirizine 10 mg tablet 10 mg PO DAILY bupropion HCl 300 mg tablet extended release 24 hr 300 mg PO DAILY duloxetine 20 mg capsule,delayed release(DR/EC) 20 mg PO cholecalciferol (vitamin D3) 50 mcg (2,000 unit) capsule 50 mcg PO DAILY omeprazole 20 mg capsule,delayed release(DR/EC) 20 mg PO DAILY krill oil [id number] mg capsule 1 cap PO DAILY atorvastatin 10 mg tablet 10 mg PO BEDTIME Qty: 90 1RF metoprolol succinate 50 mg tablet extended release 24 hr 25 mg PO DAILY Qty: 90 1RF losartan 100 mg tablet 100 mg PO DAILY Qty: 30 5RF Referrals: Jose De Jesus Vicente MD [Primary Care Provider, Internal Medicine] Print Language: Chadian
[2025-01-25 13:13] VITALS: BP 138/72; PULSE 72; RESP 18; TEMP 36.7; O2SAT 96
--- NOTE | 2025-01-25 13:23 | PC.NURSE ---
patient a&ox3, ambulatory with steady gait, labs previously drawn, provider put pt in for abd ct- pt c/o 02/11 abd pain, additionally pt was made aware we need a urine- pt ambulated to bathroom returned and stated she was unable to urinate. vss, pt awaiting ct scan.
--- OUTSIDE RECORDS SUMMARY | 2025-01-25 13:39 | XMS_ITS | Clinical Summary ---
Author Organization [address] 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 Time spent less than 88% is 50 minutes Supplemental oxygen might be indicated if treatment study shows decreased oxygen as well. Obstructive sleep apnea syndrome 05/16/2017 [place] (06/02/2024[place] [facility] [place] Date 03/03/2023. Wt 220#; [...] on CPAP of 10cm with N20 mask. [facility] Home Sleep Apnea Test: Date [...] reflux disease 10/12/2016 Depression 05/28/2016 Dilated cardiomyopathy ([facility] V24, [facility] V28 ) 05/28/2016 Hypertension 05/28/2016 Polymyalgia rheumatica ([facility] V24) 05/28/2016 Medical History Medical History Date Comments PMR (polymyalgia rheumatica) ([facility] V24) HTN (hypertension) GERD (gastroesophageal reflux disease) Depression Dilated cardiomyopathy ([facility] V24, [facility] V28) about 5-6years diagnosed [...] 63 07/13/2024 10:38 AM EST Temperature 36.6 C (97.9 F) 07/13/2024 10:38 AM EST Respiratory Rate 16 07/13/2024 10:38 AM EST [...] 10:10 AM EST Office Visit Pulmonolgy - [place] [address] [facility] [address] [place] [id number] Steffi Velazco NP [address] [facility] [address] [place] [address] Health Maintenance Due Date Last Done Comments [...] Vaccine (2023-2 5 season) 2024 Influenza Vaccine (Season Ended) [...] patient's age to complete this topic Insurance MEDICARE [employer] Care Teams Mixer Tender Relationship Specialty Start Date End Date Lj Huang DO [address] [place] [phone] PCP - General Internal Medicine 05/01/16
[2025-01-25 14:22] LABS: Color Urine Dark Yellow; Glucose Urine UA Negative (Negative); Leukocyte Esterase Urine Large (3+) (Negative); Nitrite Urine Negative (Negative); PH 5.5 (5.0-9.0); Specific Gravity - Urine 1.015 (1.005-1.025); UMIC TRIGGER UACC YES; Urine Blood Negative (Negative); Urine Ketones Trace mg/dL (Negative); Urine Protein 30 (1+) mg/dL (Neg-Trace)
[2025-01-25 14:23] LABS: Appearance Urine Cloudy
[2025-01-25 14:28] LABS: Bacteria Urine 1+ (None Seen); Squamous Epithelial Cell Urine >20 /HPF (0-2); UACC Culture Trigger YES
--- NOTE | 2025-01-25 15:24 | PC.NURSE ---
attempted to discharge patient and she wishes to speak with dr. moreira before discharging as she states she has a question for him and refused to divulge to this nurse..
[2025-01-25 15:49] VITALS: BP 128/82; PULSE 77; RESP 16; TEMP 36.7; O2SAT 96
== END 2025-01-25 15:50 | disposition home or self-care (01) ==
PROVIDERS: Emergency Provider Emergency Medicine; PCP Internal Medicine
DX: R10.2 Pelvic and perineal pain (principal); R53.83 Other fatigue; R79.89 Other specified abnormal findings of blood chemistry; Z79.899 Other long term (current) drug therapy; Z87.891 Personal history of nicotine dependence
CPT/HCPCS: 36415; 74176; 80053; 81001; 85025; 87086; 99284

== ENCOUNTER → 2025-01-25 12:41 | Outpatient (BNV) | payer MEDICARE, OTHER, SELFPAY | PROVIDERS: Emergency Provider Emergency Medicine; PCP Internal Medicine; Visit Provider Radiology Diagnostic Radiology | DX: K57.10 Diverticulosis of small intestine without perforation or abscess without bleeding (principal) | CPT/HCPCS: 74176 ==

== ENCOUNTER 2025-01-26 11:30 | Outpatient (AMB) | payer MEDICARE, OTHER, SELFPAY ==
--- NOTE | 2025-01-26 11:36 | MHC.PC.OV ---
Vital Signs 01/26/25 11:41 Height 5 ft 2 in Weight 212 lb 0.2 oz BMI 38.8 BP 128/70 Blood Pressure Location Rt brachial Pulse 87 Pulse Source Pulse Oximeter Temp 97.3 F Pulse Oximetry (%) 96 Intake Visit Reasons: f/u [facility] discharge Intake Note: review labs and ER visit Central Supply Tech Required: No Allergies Penicillins Allergy (Mild, Verified 01/26/25 11:49) Itching penicillamine Allergy (Unknown, Verified 01/26/25 11:49) Itching Medication List - Last Reconciled 01/26/25 by Celina Morales PA-C amlodipine 10 mg PO DAILY atorvastatin 10 mg PO BEDTIME bupropion HCl XL 300 mg PO DAILY cetirizine 10 mg PO DAILY cholecalciferol (vitamin D3) 50 mcg PO DAILY duloxetine 20 mg PO gabapentin 300 mg PO DAILY afuxo-gi-[id number]-lqf-dpi-murcrrv-ast [id number] mg (krill oil) 1 cap PO DAILY losartan 100 mg PO DAILY meloxicam 15 mg PO DAILY metoprolol succinate ER 25 mg (1/2 x 50 mg) PO DAILY omeprazole 20 mg PO DAILY semaglutide (weight loss) 1.7 mg (0.75 mL) subcut QWEEK Tobacco use date assessed: 01/12/25 Dental Screening Dental Screen Date: 01/12/25 HPI f/u [facility] discharge HPI Details The patient is an 80-year-old female presenting for follow-up for her abdominal pain, nausea and elevated liver enzymes. Patient was previously hospitalized for sepsis, acute cholangitis and E coli bacteremia at [facility] on 12/25/2024. At that time she was noted to have elevated liver enzymes with a alkaline phosphate of 201, ALT of 215, AST of 42 and a total bilirubin of 0.9. They recommended that patient have repeat blood work. Therefore patient called this last week and reported that she need a repeat blood work and blood cultures to make sure that she got rid of the infection after she was treated at [facility]. Therefore on Saturday last week 01/23/2025 patient called us and blood work was ordered which included CBC, CMP, ESR, CRP and blood cultures. Labs returned yesterday on 01/25/2025 and revealed leukocytosis of 15,000 an elevated ESR, elevated CRP and an elevated total bilirubin of 3.0 direct bilirubin 1.9 AST of 153 ALT of 535, alkaline phosphate of 285 and a CRP of 21.17. Therefore I called the patient myself yesterday in explained to her that she would need to go to the emergency department for further evaluation management. Patient went to [facility] Emergency Department and had repeat blood work yesterday and her leukocytosis resolved. Her total bilirubin went from 3.0-1.2. Her AST went from 153-30. Her ALT went from 535-227. Her alkaline phosphate went from 285-200. She had a CT scan of abdomen pelvis without IV contrast which did not reveal any acute processes only chronic changes and an incidental pulmonary nodule recommending repeat CT scan in 12 months. The patient reports persistent abdominal pain, primarily in the right upper quadrant, and nausea, which affects her appetite. She has a history of cholecystectomy, and a previous stone blockage in the bile duct was noted as a potential cause of her infection. She has experienced significant weight loss, attributed to the medication Wegovy, which also contributes to her lack of appetite. Social History - Weight management: The patient has experienced significant weight loss, losing 30 pounds, which is attributed to the medication Wegovy. - Nutritional intake: The patient reports a lack of appetite and relies on nutritional supplements like Ensure for nutrients. [facility] Medical History (Updated 01/26/25 @ 12:19 by Celina Morales PA-C) History of sepsis Lack of appetite Nausea Abdominal pain Solitary pulmonary nodule Cholangitis Elevated liver enzymes E coli bacteremia Sleep apnea Fatigue Heart murmur Morbid obesity with BMI of 45.0-49.9, adult Hypertension Dizziness and giddiness Hyperlipidemia Surgical History History of cholecystectomy History of colonoscopy (~10/05/16) Family History Father No problems noted. Mother No problems noted. Social History Housing: Assisted Living Facility Alcohol intake: current Alcohol intake frequency: holidays/special occasions only Patient Tobacco Use Status: Former Tobacco user service: No Current occupational status: retired Cognitive needs: No Hearing needs: Yes (b/l hearing aids) Vision needs: Yes (rx glasses) Questionnaire PHQ-9 Over the last 2 weeks, how often have you been bothered by any of the following problems? 1. Little interest or pleasure in doing things: not at all 2. Feeling down, depressed, or hopeless: not at all 3. Trouble falling or staying asleep, or sleeping too much: not at all 4. Feeling tired or having little energy: not at all 5. Poor appetite or overeating: not at all 6. Feeling bad about yourself - or that you are a failure or have let yourself or your family down: not at all 7. Trouble concentrating on things, such as reading the newspaper or watching television: not at all 8. Moving or speaking so slowly that other people could have noticed. Or the opposite - being so fidgety or restless that you have been moving around a lot more than usual: not at all 9. Thoughts that you would be better off or of hurting yourself in some way: not at all Total score: 0 Depression Screening Interpretation: Negative Depression Screening Done: Yes 44056 - PHQ-9 Billing: Yes Source: Developed by Drs. Lj Fonseca, Letha Angel, Efren Stephenson and colleagues, with an educational serenity from [facility]. Thrive Questionnaire Date Thrive assessed: 01/12/25 I am a: Patient What is your living situation today?: I have a steady place to live Within the past 12 months, did the food you bought not last and you didn't have the money to get more?: Never true Within the past 12 months, did you worry whether your food would run out before you got money to buy more?: Never true Do you have trouble paying for medicines?: No Do you have trouble getting transportation to medical appointments?: No Do you have trouble paying your heating and electricity bill?: No Do you have trouble taking care of your child, family member or friend?: No Do you have trouble with day-to-day activities such as bathing, preparing meals, shopping, managing finances, etc.?: No Are you currently unemployed and looking for a job?: No Are you interested in more education?: No Please select the resources that you would like help with: None THRIVE Score: 0 AUDIT C Alcohol Use Questionnaire (AUDIT-C) 1. How often do you have a drink containing alcohol?: Never 3. How often do you have six or more drinks on one occasion?: Never Total Score: 0 Score Reviewed/Action Taken: No FAITH-7 AMB Questionnaire FAITH-7 Date FAITH - 7 assessed: 01/12/25 Feeling nervous, anxious, or on edge: 0 = Not at all Not being able to stop or control worryin = Not at all Worrying too much about different things: 0 = Not at all Trouble relaxin = Not at all Being so restless that it is hard to sit still: 0 = Not at all Becoming easily annoyed or irritable: 0 = Not at all Feeling afraid as if something awful might happen: 0 = Not at all Total FAITH-7 score (0-4 normal; 5-9 mild; 10-14 moderate; 15-21 severe): 0 Source: Developed by Drs. Lj Fonseca, Letha Angel, Efren Stephenson and colleagues, with an educational serenity from [facility]. FAITH-7 Assessment Billing FAITH-7 Assessment Tool: FAITH-7 Assessment 77966 Review of Systems Const Details: - Weight management: The patient has experienced significant weight loss, losing 30 pounds, which is attributed to the medication Wegovy. - Nutritional intake: The patient reports a lack of appetite and relies on nutritional supplements like Ensure for nutrients. Physical exam (Primary Care) Vital Signs: Last Vital Signs Temp 97.3 F 01/26/25 11:41 Pulse 87 01/26/25 11:41 BP 128/70 01/26/25 11:41 Pulse Ox 96 01/26/25 11:41 BMI result Body Mass Index 38.8 Tobacco/Smoking Status: Tobacco use Status Tobacco use date assessed 01/12/25 01/26/25 11:44 Patient Tobacco Use Status Former Tobacco user 01/26/25 11:44 PHQ-9: PHQ-9 Score PHQ-9: Total score 0 01/26/25 11:44 Depression Screening Interpretation: Negative Thrive Assessment: Date of Thrive Assessment Date Thrive assessed 01/12/25 01/26/25 11:44 Const Other: Appearance: Alert. Oriented X3. No acute distress. Head: Normal external exam. Normocephalic. Atraumatic. Eyes: Pupils are equal, round, and reactive to light. Extraocular movements intact. Conjunctiva and sclera normal. Eyelids normal. Throat: Pharynx normal. Uvula midline. Moist mucous membranes. Neck: Normal inspection. Neck supple. Full range of motion. Cardiovascular: Normal heart rate and rhythm. Heart sound normal. No murmurs noted. Pulses normal throughout. Respiratory: No respiratory distress. Painless inspiration. Breath sounds normal. No wheezes/rales/rhonchi noted. Chest nontender. No accessory muscle usage noted or decreased air movement noted. Abdomen: Soft and nontender. No distention noted. No organomegaly noted. No visible injury noted. Skin: Skin warm and dry. Normal skin color. Normal skin turgor. No rashes/lesions/lacerations noted. Extremities: Extremities exhibit normal range of motion. Neuro: Oriented X 3. No motor deficit. No sensory deficit. Reflexes normal. Results Reviewed Results Reviewed: - Labs: Elevated liver enzymes with AST 153, ALT 535, alkaline phosphatase 285, total bilirubin 3.0, later improved to AST 30, ALT 227, alkaline phosphatase 200, total bilirubin 1.2. - Imaging: CT scan showed a solitary pulmonary nodule in the right lower lobe, measuring 5 x 6 mm. Coding Level of Care Code Est Pt Level 4 (24824) Complex EM visit Add On G2211 Diagnoses Cholangitis K83.09 E coli bacteremia R78.81; B96.20 Solitary pulmonary nodule R91.1 Abdominal pain R10.9 Nausea R11.0 Lack of appetite R63.0 History of sepsis Z86.19 Additional Codes PHQ-9 - 09636 - PHQ-9 Billing: Yes ([id number]) FAITH-7 Assessment Billing - FAITH-7 Assessment Tool: FAITH-7 Assessment 60709 ([id number]) Assessment & Plan Assessment & Plan (1) Cholangitis: Code(s): K83.09 - Other cholangitis Category: Medical Plan: The patient experienced acute cholangitis, likely due to a stone blockage in the bile duct. Follow-up with a painting machine operator is planned to assess the need for further intervention. (2) E coli bacteremia: Comment: Had E coli bacteremia at [facility] on 12/26/2024 Code(s): R78.81 - Bacteremia; B96.20 - Unspecified Escherichia coli [E. coli] as the cause of diseases classified elsewhere Category: Medical Plan: The E. coli bacteremia was treated during the patient's hospitalization. Continued monitoring for any signs of infection is necessary. (3) Solitary pulmonary nodule: Code(s): R91.1 - Solitary pulmonary nodule Category: Medical Plan: A solitary pulmonary nodule was identified on CT scan. It is recommended to monitor the nodule with a follow-up CT scan in 12 months, as the patient does not fall into a high-risk category. (4) Abdominal pain: Code(s): R10.9 - Unspecified abdominal pain Category: Medical Plan: The patient reports persistent abdominal pain, primarily in the right upper quadrant. A referral to a painting machine operator is made for further evaluation, and nausea medication is prescribed to manage symptoms. (5) Nausea: Code(s): R11.0 - Nausea Category: Medical Plan: The patient experiences nausea, affecting her appetite. Nausea medication is prescribed, and the patient is advised to take it as needed. (6) Lack of appetite: Code(s): R63.0 - Anorexia Category: Medical Plan: The patient's lack of appetite is attributed to the medication Wegovy. Nutritional supplements are recommended to ensure adequate nutrient intake. (7) History of sepsis: Code(s): Z86.19 - Personal history of other infectious and parasitic diseases Category: Medical Plan: The patient was previously hospitalized for sepsis, which was treated at [facility]. Current management involves monitoring for any signs of recurrent infection and ensuring that blood cultures remain negative. Plan Plan Patient was informed and verbally consented to the use of an ambient scribe for clinic note documentation during this visit. 1. Sepsis The patient was previously hospitalized for sepsis, which was treated at [facility]. Current management involves monitoring for any signs of recurrent infection and ensuring that blood cultures remain negative. 2. Acute Cholangitis The patient experienced acute cholangitis, likely due to a stone blockage in the bile duct. Follow-up with a painting machine operator is planned to assess the need for further intervention. 3. E. Coli Bacteremia The E. coli bacteremia was treated during the patient's hospitalization. Continued monitoring for any signs of infection is necessary. 4. Elevated Liver Enzymes The patient has elevated liver enzymes, which have shown improvement. A referral to a painting machine operator is made for further evaluation, and a hepatitis profile is ordered to rule out viral hepatitis. 5. Solitary Pulmonary Nodule A solitary pulmonary nodule was identified on CT scan. It is recommended to monitor the nodule with a follow-up CT scan in 12 months, as the patient does not fall into a high-risk category. 6. Abdominal Pain The patient reports persistent abdominal pain, primarily in the right upper quadrant. A referral to a painting machine operator is made for further evaluation, and nausea medication is prescribed to manage symptoms. 7. Nausea The patient experiences nausea, affecting her appetite. Nausea medication is prescribed, and the patient is advised to take it as needed. 8. Lack Of Appetite The patient's lack of appetite is attributed to the medication Wegovy. Nutritional supplements are recommended to ensure adequate nutrient intake. I discussed with the patient the improvement in her liver enzyme levels and the need for a gastroenterology referral to further evaluate her abdominal pain and elevated liver enzymes. We also talked about the solitary pulmonary nodule found on her CT scan, which will be monitored with a follow-up CT in 12 months. I recommended nausea medication to help manage her symptoms and advised her to continue using nutritional supplements to address her lack of appetite. We agreed on a follow-up plan, and I emphasized the importance of contacting us if her symptoms worsen. Orders: Orders Hepatitis A,B,C Profile Today R74.8 - Abnormal levels of other serum enzymes Referrals Gastroenterology Referral Z90.49 - Acquired absence of other specified parts of digestive tract Medications: New ondansetron 4 mg PO Q8H PRN 30 tabs 1RF nausea and vomiting Patient Instructions: - Take nausea medication as prescribed and as needed. - Use nutritional supplements like Ensure to maintain nutrient intake. - Follow up with the painting machine operator as scheduled. - Monitor for any worsening symptoms and contact the clinic if needed. - Plan for a follow-up CT scan in 12 months to monitor the pulmonary nodule.
[2025-01-26 11:41] VITALS: BP 128/70; PULSE 87; TEMP 36.3; O2SAT 96; BMI 38.8
--- OUTSIDE RECORDS SUMMARY | 2025-01-26 13:11 | XMS_ITS | Clinical Summary ---
Author Organization 175 [facility] Address [address] [place] [address] Phone Care Team Providers Care Hat Block Bench Hand Name Role Phone Reina Lj Primary Care Provider [phone] Allergies Active Allergy Reactions Criticality Noted Date [...] Date Nocturnal hypoxia 01/24/2023 Overview (06/02/2024): 01/06/2023 [place] on CPAP showed: Low-dose SPO2 is 75%. Time spent less than 88% is 50 minutes Supplemental oxygen might be indicated if treatment study shows decreased oxygen as well. Obstructive sleep apnea syndrome 05/16/2017 [place]06/02/2024[place] [facility] [place] 03/03/2023. Wt 220#; [...] CPAP of 10cm with N20 mask. [facility] Home Sleep Apnea Test: Date ; [...] 10:10 AM EST Office Visit Pulmonolgy - [place] [address] [facility] [address] [place] [phone] Steffi Velazco NP 175 [facility] [address] [place] [address] Health Maintenance Due Date Last Done Comments [...] topic Insurance MEDICARE [employer] Care Teams Hat Block Bench Hand Relationship Specialty Start Date End Date Lj Huang DO [address] [place] [phone] PCP - General Internal Medicine 05/01/16
== END 2025-01-26 12:12 | disposition home or self-care (01) ==
LOC: HO.HMCSH 11:30
PROVIDERS: PCP Internal Medicine; Visit Provider Physician Assistant Medical
DX: K83.09 Other cholangitis (principal); R78.81 Bacteremia; B96.20 Unspecified Escherichia coli [E. coli] as the cause of diseases classified elsewhere; R91.1 Solitary pulmonary nodule; R10.9 Unspecified abdominal pain; R11.0 Nausea; R63.0 Anorexia; Z86.19 Personal history of other infectious and parasitic diseases

== ENCOUNTER → 2025-01-26 11:30 | Outpatient (BNVA) | payer MEDICARE, OTHER, SELFPAY | PROVIDERS: PCP Internal Medicine; Visit Provider Physician Assistant Medical | DX: K83.09 Other cholangitis (principal); R78.81 Bacteremia; B96.20 Unspecified Escherichia coli [E. coli] as the cause of diseases classified elsewhere; R91.1 Solitary pulmonary nodule; R10.9 Unspecified abdominal pain; R11.0 Nausea; R63.0 Anorexia; Z86.19 Personal history of other infectious and parasitic diseases; Z87.891 Personal history of nicotine dependence | CPT/HCPCS: 96127; 99212 ==

== ENCOUNTER → 2025-02-23 08:47 | Outpatient (REF) | payer MEDICARE, OTHER, SELFPAY ==
--- NOTE | ~2025-02-23 | NM_ITS ---
EXERCISE MYOCARDIAL PERFUSION STUDY INDICATION: Chest pain to evaluate for myocardial ischemia TECHNIQUE: The patient was brought in for an exercise perfusion study on February 23, 2025. Patient performed exercise as per Fish protocol and was injected 40 mCi of sestamibi once target heart rate was achieved. Images were obtained using the SPECT gamma camera interlaced with the gating device. Images were obtained in supine position. Resting perfusion study was performed on March 01, 2025. Patient was administered 40 mCi of sestamibi intravenously at rest. Images were then obtained in supine position. Images obtained without without CT attenuation. Total DLP 142 mGy-cm. Images were processed with the software and compared side to side in short axis, horizontal long axis and vertical long axis views. FINDINGS: Raw images were reviewed The stress perfusion study showed nonattenuated images show thinning of the distal anterior and distal lateral wall of the LV myocardium. Most of the myocardial uptake is within normal limits. Attenuated corrected images show normal uptake of radiotracer in all segments of the LV myocardium.. The gated study shows normal LV systolic function with calculated LVEF of 67%. LV cavity is normal in in size. The gated study shows normal systolic wall thickening and contraction of segments. Resting study shows nonattenuated images show mildly reduced uptake in the distal lateral wall of the LV myocardium. Attenuated corrected images show mildly reduced uptake in the apex of the LV myocardium. Gating at rest reveals normal systolic wall motion with ejection fraction at 70%. The findings are consistent with normal myocardial perfusion. NM/NM cardiolite stress test IMPRESSION: 1. Myocardial perfusion imaging study shows normal myocardial perfusion. 2. Gated LVEF is 67%. 3. Transient ischemic dilatation not present. EKG revealed negative for ischemia. Electronically signed by: Main Mason MD 03/02/2025 10:39 AM EDT
--- NOTE | 2025-02-23 08:50 | CA_ITS ---
Acquisition Time: 2025-02-23 09:12:03 Total Exercise Time: 00:05:00 Test Indications: Dyspnea,Dizzy Spells Medications: AMLODIPINE ATORVASTATIN BUSPURONE DULOXETINE GABAPENTIN LOSARTAN MELOXICAM METOPROLOL OMEPRAZOLE SEMIGLOTIDE Protocol: MANUEL Max HR: 134 BPM 95% of Pred: 140 BPM Max BP: 158/78 mmHG Max Work Load: 6.6 METS Exercise stress test with exercise 5 mins of Manuel Protocol, achieving 95% MPHR, with reports of SOB, no chest pain, without any arrythmias, with normotensive response to exercise. Without any EKG changes meeting criteria for ischemia. In recovery, pt's breathing returned to baseline. Nuclear images pending. Test reviewed with Dr. Bob. Referred By: Mani Mason Electronically Signed By: Hollis Woodson
--- OUTSIDE RECORDS SUMMARY | 2025-02-23 09:07 | XMS_ITS | Clinical Summary ---
Author Organization 175 [facility] Address [address] [place] [address] Phone Care Team Providers Care Checker Bak[employer] Products Name Role Phone Reina Lj Primary Care Provider [phone] Allergies Active Allergy Reactions Criticality Noted Date [...] Date Nocturnal hypoxia 01/24/2023 Overview (06/02/2024): 01/06/2023 [place] on CPAP showed: Low-dose SPO2 is 75%. Time spent less than 88% is 50 minutes Supplemental oxygen might be indicated if treatment study shows decreased oxygen as well. Obstructive sleep apnea syndrome 05/16/2017 [place]06/02/2024[place] [facility] [place] 03/03/2023. Wt 220#; [...] on CPAP of 10cm with N20 mask. [facility] Home Sleep Apnea Test: Date [...] reflux disease 10/12/2016 Depression 05/28/2016 Dilated cardiomyopathy ([facility] V24, [facility] V28 ) 05/28/2016 Hypertension 05/28/2016 Polymyalgia rheumatica ([facility] V24) 05/28/2016 Medical History Medical History Date Comments PMR (polymyalgia rheumatica) ([facility] V24) HTN (hypertension) GERD (gastroesophageal reflux disease) Depression Dilated cardiomyopathy ([facility] V24, [facility] V28) about 5-6years diagnosed wit h [...] 10:10 AM EST Office Visit Pulmonolgy - [place] [address] [facility] [address] [place] [phone] Steffi Velazco NP 175 [facility] [address] [place] [address] Health Maintenance Due Date Last Done Comments DTaP,Tdap,and Td Vaccines (1 - Tdap) 01[birth year]10/1964 Pneumococcal Vaccine: 50+ Ye ars (1 of 1 - PCV) 1995 Zoster Vaccines (1 of 2) 1995 RSV Immunization Adult Patie nts (1 - 1-dose 75+ series) 01/10/2020 Cholesterol Screening (Lipid Panel) 07/14/2022 Falls Risk Assessment 07/14/2022 Medicare Annual Wellness Visit 07/14/2022 Osteoporosis Screening (Bone Density Screening) 07/14/2022 Social Influencers of Health Screening 07/14/2022 Hypertension/CHF/CAD Annual BMP Blood Test 07/21/2022 COVID-19 Vaccine (2023-2 5 season) 2024 Depression Screening 08/05/2024 Influenza Vaccine (#1) 2025 HIB Vaccines Aged Out No longer [...] age to complete this topic Insurance MEDICARE [facility] Care Teams Checker Bak[employer] Products Relationship Specialty Start Date End Date Lj Huang DO [address] [place] [phone] PCP - General Internal Medicine 05/01/16
== END ==
LOC: HO.CARD 08:47
PROVIDERS: PCP Internal Medicine; Visit Provider Internal Medicine Cardiovascular Disease
DX: R06.02 Shortness of breath (principal); R07.9 Chest pain, unspecified; R53.83 Other fatigue; Z88.0 Allergy status to penicillin
CPT/HCPCS: 78452; 93017; A9500; J0280; J2785

== ENCOUNTER → 2025-02-23 08:50 | Outpatient (BNV) | payer MEDICARE, OTHER, SELFPAY | PROVIDERS: PCP Internal Medicine | DX: R06.02 Shortness of breath (principal) | CPT/HCPCS: 78452; 93016; 93018 ==

== ENCOUNTER 2025-03-17 09:32 | Outpatient (REF) | payer MEDICARE, OTHER, SELFPAY ==
--- NOTE | 2025-03-17 09:47 | PFT_ITS ---
Flows: FEV1: 134 % of predicted at 2.41 L FVC: 131 % of predicted at 3.09 L FEV1/FVC: 78 % Bronchodilator response: Absent Volumes: Total lung capacity: 105 % of predicted at 4.76 L Residual volume: 77 % of predicted at 1.56 L Slow vital capacity: 132 % of predicted at 3.20 L Expiratory reserve volume: 143 % of predicted at 0.83 L Diffusion capacity: Normal Impression: No obstructive or restrictive ventilatory defect. No bronchodilator response. Normal pulmonary function test. MTDD
--- OUTSIDE RECORDS SUMMARY | 2025-03-17 10:02 | XMS_ITS | Clinical Summary ---
Author Organization 175 [facility] Address [address] [place] [address] Phone Care Team Providers Care Medicaid Analyst Name Role Phone Reina Lj Primary Care Provider [phone] Allergies Active Allergy Reactions Criticality Noted Date [...] Obstructive sleep apnea syndrome 05/16/2017 Overview (06/02/2024): [facility] [place] Polysomnogram Date 03/03/2023. Wt 220#; [...] on CPAP of 10cm with N20 mask. [facility] Home Sleep Apnea Test: Date [...] disease 10/12/2016 Depression 05/28/2016 Dilated cardiomyopathy ([facility] V24, [facility] V28 ) 05/28/2016 Hypertension 05/28/2016 Polymyalgia rheumatica ([facility] V24) 05/28/2016 Medical History Medical History Date Comments PMR (polymyalgia rheumatica) ([facility] V24) HTN (hypertension) GERD (gastroesophageal reflux disease) Depression Dilated cardiomyopathy ([facility] V24, [facility] V28) about 5-6years diagnosed wit [...] 10:10 AM EST Office Visit Pulmonolgy - [place] [address] [facility] [address] [place] [phone] Steffi Velazco NP 175 [facility] [address] [place] [address] Health Maintenance Due Date Last Done Comments [...] to complete this topic Insurance MEDICARE [facility] Care Teams Medicaid Analyst Relationship Specialty Start Date End Date Lj Huang DO [address] [place] [phone] PCP - General Internal Medicine 05/01/16
[2025-03-17 10:28] VITALS: PULSE 67; O2SAT 96
== END 2025-03-17 09:33 | disposition home or self-care (01) ==
LOC: HO.RESP 09:32
PROVIDERS: PCP Internal Medicine; Visit Provider Internal Medicine Cardiovascular Disease
DX: R06.02 Shortness of breath (principal)
CPT/HCPCS: 94010; 94640; 94727; 94729

== ENCOUNTER → 2025-03-17 09:47 | Outpatient (BNV) | payer MEDICARE, OTHER, SELFPAY | PROVIDERS: PCP Internal Medicine; Visit Provider Internal Medicine Pulmonary Disease | DX: R06.00 Dyspnea, unspecified (principal) | CPT/HCPCS: 94060; 94727; 94729 ==

== ENCOUNTER 2025-03-24 14:01 | Outpatient (AMB) | payer MEDICARE, OTHER, SELFPAY ==
[2025-03-24 14:20] VITALS: BP 112/78; PULSE 68; BMI 38.1
--- NOTE | 2025-03-24 14:20 | A.OFFVIS_ITS ---
Vital Signs 03/24/25 14:20 Height 5 ft 2 in Weight 208 lb 1.862 oz BMI 38.1 BP 112/78 Blood Pressure Location Lt femoral Position Sitting Pulse 68 Pulse Source Pulse Oximeter Intake Visit Reasons: f/up-testing yasmin, pft Intake Note: follow up testing, pt states she has fatigue Accompanied by: Self / Same As Patient Allergies Penicillins Allergy (Mild, Verified 03/24/25 14:23) Itching penicillamine Allergy (Unknown, Verified 03/24/25 14:23) Itching Medication List - Last Reconciled 03/24/25 by Hollis Woodson NP amlodipine 10 mg PO DAILY atorvastatin 10 mg PO BEDTIME bupropion HCl XL 300 mg PO DAILY cetirizine 10 mg PO DAILY cholecalciferol (vitamin D3) 50 mcg PO DAILY duloxetine 20 mg PO gabapentin 300 mg PO DAILY alkiv-xi-0-sxw-ayj-rhhzlld-ast [id number] mg (krill oil) 1 cap PO DAILY losartan 100 mg PO DAILY meloxicam 15 mg PO DAILY metoprolol succinate ER 25 mg (1/2 x 50 mg) PO DAILY omeprazole 20 mg PO DAILY ondansetron 4 mg PO Q8H PRN semaglutide (weight loss) (Wegovy) 1.7 mg (0.75 mL) subcut QWEEK HPI Comments Details: This is an 80-year-old female patient coming in for a follow-up visit. Patient with a history of hypertension, hyperlipidemia, sleep apnea, and obesity who was previously seen in the office for ongoing shortness of breath and fatigue. Subsequently patient underwent a pulmonary function test, myocardial perfusion study, and has previously undergone a Holter and an echo study. Patient states that about 10 years ago she had a cardiac catheterization when she had developed some chest discomfort which were negative for any coronary artery disease. Today, patient reports ongoing symptoms of fatigue and is otherwise denying any cardiac symptoms of exertional chest pain, shortness of breath, palpitations, dizziness, orthopnea, PND, leg edema, presyncope or syncope. Patient also notes that she had some elevated liver function tests for which she was sent to the emergency room with some improvement but is scheduled to see GI next. Patient reports compliance with all her medications. [facility] Medical History (Updated 03/24/25 @ 15:17 by Hollis Woodson NP) Short of breath on exertion History of sepsis Lack of appetite Nausea Abdominal pain Solitary pulmonary nodule Cholangitis Elevated liver enzymes E coli bacteremia Sleep apnea Fatigue Heart murmur Morbid obesity with BMI of 45.0-49.9, adult Hypertension Dizziness and giddiness Hyperlipidemia Surgical History History of cholecystectomy History of colonoscopy (~10/05/16) Family History Father No problems noted. Mother No problems noted. Social History Housing: Assisted Living Facility Alcohol intake: current Alcohol intake frequency: holidays/special occasions only Patient Tobacco Use Status: Former Tobacco user service: No Current occupational status: retired Cognitive needs: No Hearing needs: Yes (b/l hearing aids) Vision needs: Yes (rx glasses) Review of Systems Const Denies chills, Denies fever(s), Denies frequent falls, Denies weakness, Denies weight gain and Denies weight loss Card Denies chest pain, Denies leg edema, Denies lightheadedness, Denies palpitations, Denies dyspnea, Denies orthopnea and Denies other (loss of consciousness) Resp Denies cough and Denies dyspnea GI Denies hematochezia and Denies change in stool character Musc Denies abnormal gait, Denies muscle weakness, Denies numbness, Denies radiating pain into limb and Denies tingling Neuro Denies abnormal gait, Denies frequent falls, Denies numbness, Denies tingling and Denies weakness Endo Denies palpitations Physical Exam Vital Signs: Last Vital Signs Pulse 68 03/24/25 14:20 BP 112/78 03/24/25 14:20 BMI result Body Mass Index 38.1 Const General: cooperative, healthy appearing, comfortable and no acute distress Orientation/consciousness: patient oriented x3 HEENT Head: Yes normal to inspection Neck Neck: Yes normal visual inspection, Yes trachea midline and Yes supple Chest Chest palpation & inspection: normal inspection of the chest Resp Effort & Inspection: normal respiratory effort Auscultation: clear to auscultation bilaterally, no crackles, no rales, no rhonchi and no wheezes Cardio Jugular venous distension: no JVD Palpation: normal PMI Rate: regular rate Rhythm: regular rhythm Heart sounds: S1 normal heart sound present, S2 normal heart sound present, no click, no gallops, no murmurs and no rubs Peripheral pulses: Peripheral pulses 2+ throughout GI Inspection: Yes normal to inspection Palpation (GI): Soft to palpation Auscultation: normal bowel sounds Skin General skin exam: no rashes or lesions noted Neuro General: patient oriented x3 Extrem General: Yes normal to inspection, No no pedal edema and No calf tenderness Psych Appearance: grossly normal Mental Status: mental status grossly normal Speech and movement: Normal speech and movement present Assessment & Plan Assessment & Plan (1) Fatigue: Code(s): R53.83 - Other fatigue Category: Medical Plan: 11/19/2024-echo study showed a normal LV systolic function with the ejection fraction between 60-65% with impaired relaxation filling pattern, mildly dilated ascending aorta at 3.8 cm. 11/19/2024-Holter study showed baseline normal sinus rhythm with an average heart rate of 62 beats per minute, frequent sinus bradycardia, and rare PACs. 02/23/2025-patient underwent myocardial perfusion study which was normal. 03/17/2025-pulmonary function test was also normal. Given above findings, no indications for further testing at this point. Patient states that she has upcoming GI visit for the elevated LFTs. We will order a Lyme panel given that patient had elevated inflammation markers. Patient to follow up with PCP with this. (2) Hypertension: Code(s): I10 - Essential (primary) hypertension Category: Medical Plan: Blood pressure today is well-controlled. Continue current regimen. Advised monitoring blood pressures at home with a goal less than 130/80. (3) Hyperlipidemia: Code(s): E78.5 - Hyperlipidemia, unspecified Category: Medical Plan: Most recent LDL at 88, with an goal of less than 100. Continue statin therapy. (4) Sleep apnea: Code(s): G47.30 - Sleep apnea, unspecified Category: Medical Plan: Continue CPAP therapy. Patient states that she recently had a mask fitted and is on appropriate therapy. Advised heart healthy diet, regular exercise, losing weight, med compliance, and management of vascular risk factors. Follow-up on an as-needed basis. In the interim, patient will call the office with any concerns or change in symptoms. This note was generated using voice recognition software. While every effort has been made to ensure accuracy and proper attendance officer, there may be occasional errors that could affect the content or meaning of the described symptoms. Orders: Orders Lyme IgG/IgM w/reflex to WB Today R53.83 - Other fatigue Medications: New metoprolol succinate ER 25 mg PO DAILY 90 tabs 3RF Coding Level of Care Code Est Pt Level 4 (60448) Complex EM visit Add On G2211 Diagnoses Fatigue R53.83 Hypertension I10 Hyperlipidemia E78.5 Sleep apnea G47.30 Time Spent (min) 33 Comment Time spent in reviewing the chart, test results, assessment, counseling and documentation.
--- OUTSIDE RECORDS SUMMARY | 2025-03-24 14:57 | XMS_ITS | Clinical Summary ---
Author Organization 175 [facility] Address [address] [place] [address] Phone Care Team Providers Care Systems Analyst Developer Name Role Phone Reina Lj Primary Care Provider [phone] Allergies Active Allergy Reactions Criticality Noted Date [...] on CPAP of 10cm with N20 mask. [facility] Home Sleep Apnea Test: Date ; BMI [...] reflux disease 10/12/2016 Depression 05/28/2016 Dilated cardiomyopathy ([facility] V24, [facility] V28 ) 05/28/2016 Hypertension 05/28/2016 Polymyalgia rheumatica ([facility] V24) 05/28/2016 Medical History Medical History Date Comments PMR (polymyalgia rheumatica) ([facility] V24) HTN (hypertension) GERD (gastroesophageal reflux disease) Depression Dilated cardiomyopathy ([facility] V24, [facility] V28) about 5-6years diagnosed wit h Broken [...] 10:10 AM EST Office Visit Pulmonolgy - [place] 175 [facility] [address] [place] [phone] Steffi Velazco NP 175 [facility] [address] [place] [address] Health Maintenance Due Date Last Done Comments [...] age to complete this topic Insurance MEDICARE [facility] Care Teams Systems Analyst Developer Relationship Specialty Start Date End Date Lj Huang DO [address] [place] [phone] PCP - General Internal Medicine 05/01/16
== END 2025-03-24 14:51 | disposition home or self-care (01) ==
LOC: HO.HCS 14:02
PROVIDERS: PCP Internal Medicine
DX: R53.83 Other fatigue (principal); I10 Essential (primary) hypertension; E78.5 Hyperlipidemia, unspecified; G47.30 Sleep apnea, unspecified
CPT/HCPCS: 99214; G2211

== ENCOUNTER → 2025-03-24 14:01 | Outpatient (BNVA) | payer MEDICARE, OTHER, SELFPAY | PROVIDERS: PCP Internal Medicine | DX: R53.83 Other fatigue (principal); I10 Essential (primary) hypertension; E78.5 Hyperlipidemia, unspecified; G47.30 Sleep apnea, unspecified | CPT/HCPCS: 99212 ==

== ENCOUNTER 2025-03-30 09:31 | Outpatient (AMB) | payer MEDICARE, OTHER, SELFPAY ==
[2025-03-30 09:33] VITALS: BP 136/78; PULSE 96; TEMP 36.6; O2SAT 99; BMI 38.0
--- NOTE | 2025-03-30 09:33 | MHC.OFFWIV ---
Intake Vital Signs 03/30/25 09:33 Height 5 ft 2 in Weight 208 lb BMI 38.0 BP 136/78 Blood Pressure Location Lt brachial Position Sitting Pulse 96 Pulse Source Pulse Oximeter Temp 97.8 F Temp Source Oral Pulse Oximetry (%) 99 Oxygen Delivery Method Room Air Intake Visit Reasons: EP-Ear wax build-up Intake Note: pt presents with bilateral ear blockage Patient Tobacco Use Status: Former Tobacco user Allergies Penicillins Allergy (Mild, Verified 03/30/25 09:39) Itching penicillamine Allergy (Unknown, Verified 03/30/25 09:39) Itching Do you need a note to return to daycare/school/sports/work: No HPI HPI Comments History of Present Illness Details History - The patient is an 80-year-old female presenting with cerumen impaction affecting her hearing aids. - The patient reports that her hearing aids are getting blocked due to earwax accumulation. - She has not experienced any pain associated with this issue. - The patient has been advised by [employer] to have the wax removed. - She has no hearing loss, discharge, or cold symptoms. Physical Exam General: Cooperative, healthy appearing, comfortable, no acute distress and well developed Head: Normal to inspection Ears: External ears normal bilaterally. No tragus or mastoid tenderness noted. Cerumen noted in the canal but not impacted. TM's visualized and normal. Face and sinus: Normal facial exam. No TTP of the sinuses. Neck: Normal visual inspection. Full ROM. No lymphadenopathy noted. Respiratory: Normal respiratory effort and able to speak in complete sentences. Clear to auscultation bilaterally. No w/r/r noted. Cardiac: RRR, no m/r/g noted. Normal S1 and S2 noted. Skin: No rashes or lesions noted Neuro: Patient oriented x3 Patient was informed and verbally consented to the use of an ambient scribe for clinic note documentation during this visit. [facility] Medical History (Updated 03/24/25 @ 15:17 by Hollis Woodson NP) Short of breath on exertion History of sepsis Lack of appetite Nausea Abdominal pain Solitary pulmonary nodule Cholangitis Elevated liver enzymes E coli bacteremia Sleep apnea Fatigue Heart murmur Morbid obesity with BMI of 45.0-49.9, adult Hypertension Dizziness and giddiness Hyperlipidemia Surgical History History of cholecystectomy History of colonoscopy (~10/05/16) Family History Father No problems noted. Mother No problems noted. Social History Housing: Assisted Living Facility Alcohol intake: current Alcohol intake frequency: holidays/special occasions only Patient Tobacco Use Status: Former Tobacco user service: No Current occupational status: retired Cognitive needs: No Hearing needs: Yes (b/l hearing aids) Vision needs: Yes (rx glasses) Review of Systems Const All systems reviewed & are unremarkable except as noted in HPI and below Physical Exam Vital Signs: Last Vital Signs Temp 97.8 F 03/30/25 09:33 Pulse 96 03/30/25 09:33 BP 136/78 03/30/25 09:33 Pulse Ox 99 03/30/25 09:33 Oxygen Delivery Method Room Air 03/30/25 09:33 BMI result Body Mass Index 38.0 Office Procedures Cerumen Removal From which ear canal was the cerumen removed: bilateral Removal: irrigation Notes: patient tolerated procedure well, no complications and ear canal clear [id number] Irrigation/Lavage Assessment & Plan Assessment & Plan (1) Excessive cerumen in both ear canals: Code(s): H61.23 - Impacted cerumen, bilateral Plan Most likely cerumen impaction plan - Plan to perform ear irrigation to remove cerumen. - Prescribe ear drops to prevent future wax buildup, to be used after showering. Orders: Orders AMB Cerumen Removal Today H61.23 - Impacted cerumen, bilateral Medications: New carbamide peroxide 6.5% (Debrox) 5 drps otic (ears) DAILY 15 mL 0RF 4 days Coding Level of Care Code Est Pt Level 3 (45500) Diagnoses Excessive cerumen in both ear canals H61.23 CPT Codes Office Procedure - CPT: 33877-Tqj Irrigation/Lavage ([id number])
--- OUTSIDE RECORDS SUMMARY | 2025-03-30 10:07 | XMS_ITS | Encounter Summary ---
Author Organization [facility] Address [address] [place] [address] Care Team Providers Care Legal Transcriber Name Role Phone Lj Huang Primary Care Provider Unavail able Encounter Details Date Type Department Care Team Description 08/10/2016 Business Doc Medical Records [address] [place] [address] Abstract, Provider Social History Tobacco Use Types Packs/Day Years Used Date Smoking Tobacco: Former Cigarettes 17 Q uit: 05/28/1981 Alcohol Use Standard Drinks/Week Comments Not Asked 0 (1 standard drink = 0.6 oz pur e alcohol) Sex Assigned at Date Recorded Not on file documented as of this encounter Plan of Treatment Not on file documented as of this encounter Visit Diagnoses Not on filedocumented in this encounter Care Teams Legal Transcriber Relationship Specialty Start Date End Date Lj Huang PCP - General Internal Medicine 05/01/16 documented as of this encounter
--- OUTSIDE RECORDS SUMMARY | 2025-03-30 10:07 | XMS_ITS | Encounter Summary ---
Author Organization [facility] Address [address] [place] [address] Care Team Providers Care Caustic Mixer Name Role Phone Lj Huang Primary Care Provider Unavail able Encounter Details Date Type Department Care Team Description 07/18/2017 Transfer Records Medical Records [address] [place] [id number] Abstract, Provider Social History Tobacco Use Types [...] on filedocumented in this encounter Care Teams Caustic Mixer Relationship Specialty Start Date End Date Lj Huang PCP - General Internal Medicine 05/01/16 documented as of this encounter
--- OUTSIDE RECORDS SUMMARY | 2025-03-30 10:07 | XMS_ITS | Clinical Summary ---
Author Organization 175 [facility] Address [address] [place] [address] Phone Care Team Providers Care Administrative Judge Name Role Phone Reina Lj Primary Care Provider [phone] Allergies Active Allergy Reactions Criticality Noted Date [...] Obstructive sleep apnea syndrome 05/16/2017 Overview (06/02/2024): [facility] Split Night Polysomnogram Date 03/03/2023. [...] on CPAP of 10cm with N20 mask. [facility] Home Sleep Apnea Test: Date [...] reflux disease 10/12/2016 Depression 05/28/2016 Dilated cardiomyopathy ([facility] V24, [facility] V28 ) 05/28/2016 Hypertension 05/28/2016 Polymyalgia rheumatica ([facility] V24) 05/28/2016 Medical History Medical History Date Comments PMR (polymyalgia rheumatica) ([facility] V24) HTN (hypertension) GERD (gastroesophageal reflux disease) Depression Dilated cardiomyopathy ([facility] V24, [facility] V28) about 5-6years diagnosed wit h Broken [...] 10:10 AM EST Office Visit Pulmonolgy - [place] 175 [facility] [address] [place] [address] Steffi Velazco NP [address] [place] [address] Health Maintenance Due Date Last Done Comments [...] Vaccine ( - 2023-2 5 season) 2024 Depression Screening 08/05/2024 Influenza [...] age to complete this topic Insurance MEDICARE [facility] Care Teams Administrative Judge Relationship Specialty Start Date End Date Lj Huang DO [address] [place] [phone] PCP - General Internal Medicine 05/01/16
--- OUTSIDE RECORDS SUMMARY | 2025-03-30 10:07 | XMS_ITS | Encounter Summary ---
Author Organization [facility] Address [address] [place] [address] Care Team Providers Care Waiter/Waitress Buffet Name Role Phone jL Huang Primary Care Provider Unavail able Reason for Visit * Reason Comments E-prescribe Rx Request Encounter Details Date Type Department Care Team Description 11/21/2023 Refill Pulmonology - [place] 175 [facility] [address] [place] [phone] Steffi Velazco APRN 175 [facility] [address] [place] [phone] E-prescribe Rx Request Social History Tobacco Use Types Packs/Day Years Used Date Smoking Tobacco: Former Cigarettes 17 Q uit: 05/28/1981 Smokeless Tobacco: Never Alcohol Use Standard Drinks/Week Comments Not Asked 0 (1 standard drink = 0.6 oz pur e alcohol) Sex Assigned at Date Recorded Not on file documented as of this encounter Miscellaneous Notes * Telephone Encounter - Lora Huddleston - 11/21/2023 10:31 AM EDT Nov 07/13/24 [place] 12/17/22 documented in this encounter Plan of Treatment Not on file documented as of this encounter Visit Diagnoses Not on filedocumented in this encounter Care Teams Waiter/Waitress Buffet Relationship Specialty Start Date End Date Lj Huang PCP - General Internal Medicine 05/01/16 documented as of this encounter
--- OUTSIDE RECORDS SUMMARY | 2025-03-30 10:07 | XMS_ITS | Encounter Summary ---
Author Organization [facility] Address [address] [place] [address] Care Team Providers Care Walnut Dehydrator Operator Name Role Phone Lj Huang Primary Care Provider Unavail able Encounter Details Date Type Department Care Team Description 05/01/2016 Hospital Medical Records [address] [place] [address] Momo Waller MD Social History Tobacco Use Types Packs/Day Years [...] on filedocumented in this encounter Care Teams Walnut Dehydrator Operator Relationship Specialty Start Date End Date Lj Huang PCP - General Internal Medicine 05/01/16 documented as of this encounter
--- OUTSIDE RECORDS SUMMARY | 2025-03-30 10:07 | XMS_ITS | Encounter Summary ---
Author Organization [facility] Address [address] [place] [address] Care Team Providers Care Body Shop Mechanic Name Role Phone Lj Huang Primary Care Provider Unavail able Encounter Details Date Type Department Care Team Description 04/12/2023 Orders Only Pulmonology - [place] 175 [facility] [address] [place] [address] Steffi Velazco APRN 175 [facility] [address] [place] [address] Moderate Obstructive Sleep Apnea with AHI 28; Nocturnal hypoxia Social History Tobacco Use Types Packs/Day Years Used Date Smoking Tobacco: Former Cigarettes 17 Q uit: 05/28/1981 Smokeless Tobacco: Never Alcohol Use Standard Drinks/Week Comments Not Asked 0 (1 standard drink = 0.6 oz pur e alcohol) Sex Assigned at Date Recorded Not on file COVID-19 Exposure Response Date Recorded In the last 10 days, have yo u been in contact with someone who was confirmed or suspected to have Coronavirus/COVID-19? Unable to assess 04/10/2023 12:27 PM EDT documented as of this encounter Plan of Treatment Not on file documented as of this encounter Procedures Procedure Name Priority Date/Time Associated Diagnosis Comments TREATMENT SLEEP STUDY-16 CHANNEL Routine 03/03/2023 Moderate Obstructive Sleep Apnea with AHI 28 Nocturnal hypoxia documented in this encounter Results * TREATMENT SLEEP STUDY-16 CHANNEL (03/03/2023) 03/03/2023 Steffi Mora [facility] documented in this encounter Visit Diagnoses Diagnosis Moderate Obstructive Sleep Apnea with AHI 28 Obstructive sleep apnea (adult) (pediatric) Nocturnal hypoxia Hypoxemia documented in this encounter Care Teams Body Shop Mechanic Relationship Specialty Start Date End Date Lj Huang PCP - General Internal Medicine 05/01/16 documented as of this encounter
--- OUTSIDE RECORDS SUMMARY | 2025-03-30 10:07 | XMS_ITS | Encounter Summary ---
Author Organization [facility] Address [address] [place] [address] Care Team Providers Care Spring Up Supervisor Name Role Phone Lj Huang Primary Care Provider Unavail able Reason for Visit * Reason Onset Date Comments DME Request 12/17/2022 Encounter Details Date Type Department Care Team Description 12/17/2022 Telephone Pulmonology - [place] 175 [facility] [address] [place] [address] Steffi Velazco APRN 175 [facility] [address] [place] [phone] DME Request Social History Tobacco Use Types Packs/Day [...] was confirmed or suspected to have Coronavirus/COVID-19? No / Unsure 12/17/2022 9:19 AM EDT documented as of this encounter Miscellaneous Notes * Telephone Encounter - Annemarie Potts - 12/17/2022 2:20 PM EDT machine stop transmitting of the 5g upgrade because its an older machine they need sd card, they will be calling patient to request sd documented in this encounter Plan of Treatment Not on file documented as of this encounter Visit Diagnoses Not on filedocumented in this encounter Care Teams Spring Up Supervisor Relationship Specialty Start Date End Date Lj Huang PCP - General Internal Medicine 05/01/16 documented as of this encounter
--- OUTSIDE RECORDS SUMMARY | 2025-03-30 10:07 | XMS_ITS | Encounter Summary ---
Author Organization [facility] Address [address] [place] [address] Care Team Providers Care Pain Management Nurse Practitioner Name Role Phone Lj Huang Primary Care Provider Unavail able Encounter Details Date Type Department Care Team Description 09/18/2017 Business Doc Medical Records [address] [place] [address] Abstract, Provider Social History Tobacco Use Types [...] on filedocumented in this encounter Care Teams Pain Management Nurse Practitioner Relationship Specialty Start Date End Date Lj Huang PCP - General Internal Medicine 05/01/16 documented as of this encounter
--- OUTSIDE RECORDS SUMMARY | 2025-03-30 10:07 | XMS_ITS | Encounter Summary ---
Author Organization [facility] Address [address] [place] [address] Care Team Providers Care Operator Maintainer Name Role Phone Lj Huang Primary Care Provider Unavail able Reason for Visit * Reason Comments E-prescribe Rx Request Encounter Details Date Type Department Care Team Description 11/18/2022 Refill Pulmonology - [place] 175 [facility] [address] [place] [address] Steffi Velazco APRN 175 [facility] [address] [place] [address] E-prescribe Rx Request Social History Tobacco Use [...] on filedocumented in this encounter Care Teams Operator Maintainer Relationship Specialty Start Date End Date Lj Huang PCP - General Internal Medicine 05/01/16 documented as of this encounter
--- OUTSIDE RECORDS SUMMARY | 2025-03-30 10:07 | XMS_ITS | Encounter Summary ---
Author Organization [facility] Address [address] [place] [address] Care Team Providers Care Stone Setter [employer] Frames Name Role Phone Lj Huang Primary Care Provider Unavail able Reason for Visit * Reason Onset Date Comments DME Request 05/20/2023 Encounter Details Date Type Department Care Team Description 05/20/2023 Telephone Pulmonology - [place] [address] [facility] [address] [place] [address] Steffi Velazco APRN [address] [facility] [address] [place] [phone] DME Request Social History Tobacco Use Types Packs/Day Years Used Date Smoking Tobacco: Former Cigarettes 17 Q uit: 05/28/1981 Smokeless Tobacco: Never Alcohol Use Standard Drinks/Week Comments Not Asked 0 (1 standard drink = 0.6 oz pur e alcohol) Sex Assigned at Date Recorded Not on file documented as of this encounter Miscellaneous Notes * Telephone Encounter - Tosin Zuniga - 05/20/2023 2:44 PM EDT Received DME fax from [facility] RE: confirmation of verbal order for Home medical equipment- [facility]i[employer] NOV 12/19/2023 CHRIS 12/17/2022 documented in this encounter Plan of Treatment Not on file documented as of this encounter Visit Diagnoses Not on filedocumented in this encounter Care Teams Stone Setter [employer]ames Relationship Specialty Start Date End Date Lj Huang PCP - General Internal Medicine 05/01/16 documented as of this encounter
== END 2025-03-30 10:35 | disposition home or self-care (01) ==
PROVIDERS: PCP Internal Medicine; Visit Provider Physician Assistant Medical
DX: H61.23 Impacted cerumen, bilateral (principal)

== ENCOUNTER → 2025-03-30 09:31 | Outpatient (BNVA) | payer MEDICARE, OTHER, SELFPAY | PROVIDERS: PCP Internal Medicine; Visit Provider Physician Assistant Medical | DX: H61.23 Impacted cerumen, bilateral (principal) | CPT/HCPCS: 69209; 99212 ==

== ENCOUNTER 2025-04-13 13:36 | Outpatient (AMB) | payer MEDICARE, OTHER, SELFPAY ==
[2025-04-13 13:47] VITALS: BP 172/77; PULSE 60; RESP 16; TEMP 36.4; O2SAT 98; BMI 38.4
--- NOTE | 2025-04-13 13:47 | A.OFFPC_ITS ---
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 Accompanied by: Self / Same As Patient Allergies Penicillins Allergy (Mild, Verified 04/13/25 13:47) Itching penicillamine Allergy (Unknown, Verified 04/13/25 13:47) Itching Tobacco use date assessed: 04/13/25 Dental Screening Dental Screen Date: 01/12/25 [facility] Medical History (Updated 04/13/25 @ 14:00 by Jose De Jesus Vicente MD) Dilated cardiomyopathy Short of breath on exertion History of sepsis Lack of appetite Nausea Abdominal pain Solitary pulmonary nodule Cholangitis Elevated liver enzymes E coli bacteremia Sleep apnea Fatigue Heart murmur Morbid obesity with BMI of 45.0-49.9, adult Hypertension Dizziness and giddiness Hyperlipidemia Surgical History History of cholecystectomy History of colonoscopy (~10/05/16) Family History Father No problems noted. Mother No problems noted. Social History Housing: Assisted Living Facility Alcohol intake: current Alcohol intake frequency: holidays/special occasions only Patient Tobacco Use Status: Former Tobacco user service: No Current occupational status: retired Cognitive needs: No Hearing needs: Yes (b/l hearing aids) Vision needs: Yes (rx glasses) Questionnaire PHQ-9 Over the last 2 weeks, how often have you been bothered by any of the following problems? 1. Little interest or pleasure in doing things: not at all 2. Feeling down, depressed, or hopeless: not at all 3. Trouble falling or staying asleep, or sleeping too much: not at all 4. Feeling tired or having little energy: not at all 5. Poor appetite or overeating: not at all 6. Feeling bad about yourself - or that you are a failure or have let yourself or your family down: not at all 7. Trouble concentrating on things, such as reading the newspaper or watching television: not at all 8. Moving or speaking so slowly that other people could have noticed. Or the opposite - being so fidgety or restless that you have been moving around a lot more than usual: not at all 9. Thoughts that you would be better off or of hurting yourself in some way: not at all Total score: 0 Depression Screening Interpretation: Negative Depression Screening Done: Yes 49128 - PHQ-9 Billing: Yes Source: Developed by Drs. Lj Fonseca, Letha Angel, Efren Stephenson and colleagues, with an educational serenity from [employer]. Thrive Questionnaire Date Thrive assessed: 01/26/25 I am a: Patient What is your living situation today?: I have a steady place to live Within the past 12 months, did the food you bought not last and you didn't have the money to get more?: Never true Within the past 12 months, did you worry whether your food would run out before you got money to buy more?: Never true Do you have trouble paying for medicines?: No Do you have trouble getting transportation to medical appointments?: No Do you have trouble paying your heating and electricity bill?: No Do you have trouble taking care of your child, family member or friend?: No Do you have trouble with day-to-day activities such as bathing, preparing meals, shopping, managing finances, etc.?: No Are you currently unemployed and looking for a job?: No Are you interested in more education?: No Please select the resources that you would like help with: None THRIVE Score: 0 AUDIT C Alcohol Use Questionnaire (AUDIT-C) 1. How often do you have a drink containing alcohol?: Never 3. How often do you have six or more drinks on one occasion?: Never Total Score: 0 Score Reviewed/Action Taken: No FAITH-7 AMB Questionnaire FAITH-7 Date FAITH - 7 assessed: 01/26/25 Feeling nervous, anxious, or on edge: 0 = Not at all Not being able to stop or control worryin = Not at all Worrying too much about different things: 0 = Not at all Trouble relaxin = Not at all Being so restless that it is hard to sit still: 0 = Not at all Becoming easily annoyed or irritable: 0 = Not at all Feeling afraid as if something awful might happen: 0 = Not at all Total FAITH-7 score (0-4 normal; 5-9 mild; 10-14 moderate; 15-21 severe): 0 Source: Developed by Drs. Lj Fonseca, Letha Angel, Efren Stephenson and colleagues, with an educational serenity from [employer]. FAITH-7 Assessment Billing FAITH-7 Assessment Tool: FAITH-7 Assessment 83148 Physical exam (Primary Care) Vital Signs: Last Vital Signs Temp 97.5 F 04/13/25 13:47 Pulse 60 04/13/25 13:47 Resp 16 04/13/25 13:47 BP 142/66 H 04/13/25 13:56 Pulse Ox 98 04/13/25 13:47 Oxygen Delivery Method Room Air 04/13/25 13:47 BMI result Body Mass Index 38.4 Tobacco/Smoking Status: Tobacco use Status Tobacco use date assessed 04/13/25 04/13/25 13:55 Patient Tobacco Use Status Former Tobacco user 04/13/25 13:55 PHQ-9: PHQ-9 Score PHQ-9: Total score 0 04/13/25 13:56 Depression Screening Interpretation: Negative Thrive Assessment: Date of Thrive Assessment Date Thrive assessed 01/26/25 04/13/25 13:55 Coding Level of Care Code Est Pt Level 4 (13621) Complex EM visit Add On G2211 Diagnoses Dilated cardiomyopathy I42.0 Morbid obesity with BMI of 45.0-49.9, adult E66.01; Z68.42 Additional Codes FAITH-7 Assessment Billing - FAITH-7 Assessment Tool: FAITH-7 Assessment 77527 ([id number]) PHQ-9 - 76453 - PHQ-9 Billing: Yes ([id number]) Assessment & Plan Assessment & Plan (1) Dilated cardiomyopathy: Code(s): I42.0 - Dilated cardiomyopathy Category: Medical Plan: Condition is stable. Cardiology consult only if needed. (2) Morbid obesity with BMI of 45.0-49.9, adult: Code(s): E66.01 - Morbid (severe) obesity due to excess calories; Z68.42 - Body mass index [BMI] 45.0-49.9, adult Category: Medical Plan: History of Present Illness - The patient is an 80-year-old female presenting with concerns about weight loss and medication coverage. - Cardiomyopathy: Previously diagnosed, now improved post-weight loss. No longer under special service representative care due to satisfactory test results. - Fatigue: Resolved after 37-pound weight loss on Wegovy. No longer experiences afternoon exhaustion. - Lung nodule: 6 mm nodule requires biannual chest x-rays. Last x-ray in January, next due in July. - Sepsis: Hospitalized previously, advised regular chest x-rays for lung nodule monitoring. - Joint pain: Managed with meloxicam for inflammation and pain relief. Social History - Weight management: The patient has struggled with weight issues throughout her life and has tried various diets, including a liquid diet. - Exercise: The patient reports eating better and exercising, contributing to her weight loss. Review of Systems - General: Reports resolved fatigue after weight loss. Denies current fatigue or exhaustion. - Respiratory: Denies current respiratory symptoms. Lung nodule being monitored. - Musculoskeletal: Reports joint pain managed with meloxicam. Physical Exam General: Cooperative and healthy appearing Nutritional Appearance: Well nourished Orientation/consciousness: Patient oriented x3 Limitations: No limitations Head: Normal to inspection General: Appearance normal, both eyes and all related structures Neck: Normal visual inspection Chest: Normal palpation of entire chest wall Respiratory: N ormal respiratory effort Neurology: Patient oriented x3, no fatigue or exhaustion reported. Results - Imaging: Chest x-ray in January showed a 6 mm lung nodule, with follow-up recommended in July. Plan 1. Cardiomyopathy - Cardiomyopathy symptoms have improved with weight loss. No further cardiology follow-up needed unless symptoms return. 2. Lung Nodule - Scheduled chest x-rays every six months for monitoring. Next x-ray in July. 3. Sepsis - Previous hospitalization for sepsis. Lung nodule monitoring is part of ongoing care. 4. Joint Pain - Continue meloxicam for joint pain. Monitor symptoms for any changes. Discussion Notes During the visit, we discussed the patient's weight loss and its positive impact on her cardiomyopathy and fatigue. We also addressed her concerns about the discontinuation of Wegovy coverage and explored alternative options like Zepbound. The importance of regular monitoring of her lung nodule with chest x- rays was emphasized, with the next x-ray scheduled for July. We reviewed her joint pain management with meloxicam and confirmed that no further cardiology follow-up is needed unless symptoms recur. Patient Instructions - Continue using meloxicam for joint pain as needed. - Schedule and attend the next chest x-ray in July for lung nodule monitoring. - Contact your insurance company to confirm coverage for Wegovy or consider alternative options like Zepbound. - Follow up with the clinic if any new symptoms arise or if there are concerns about current conditions.
[2025-04-13 13:56] VITALS: BP 142/66
--- OUTSIDE RECORDS SUMMARY | 2025-04-13 16:06 | XMS_ITS | Clinical Summary ---
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 Time spent less than 88% is 50 minutes Supplemental oxygen might be indicated if treatment study shows decreased oxygen as well. Obstructive sleep apnea syndrome 05/16/2017 Overview (06/02/2024): [facility] Split Night Polysomnogram Date 03/03/2023. [...] CPAP of 10cm with N20 mask. [facility] Home Sleep Apnea Test: Date ; BMI [...] reflux disease 10/12/2016 Depression 05/28/2016 Dilated cardiomyopathy ([facility] V24, [facility] V28 ) 05/28/2016 Hypertension 05/28/2016 Polymyalgia rheumatica ([facility] V24) 05/28/2016 Medical History Medical History Date Comments PMR (polymyalgia rheumatica) ([facility] V24) HTN (hypertension) GERD (gastroesophageal reflux disease) Depression Dilated cardiomyopathy ([facility] V24, [facility] V28) about 5-6years diagnosed wit h [...] 10:10 AM EST Office Visit Pulmonolgy - [place] [address] 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
== END 2025-04-13 14:17 | disposition home or self-care (01) ==
LOC: HO.HMCSH 13:36
PROVIDERS: PCP Internal Medicine; Visit Provider Internal Medicine
DX: I42.0 Dilated cardiomyopathy (principal); E66.01 Morbid (severe) obesity due to excess calories; Z68.42 Body mass index [BMI] 45.0-49.9, adult

== ENCOUNTER → 2025-04-13 13:36 | Outpatient (BNVA) | payer MEDICARE, OTHER, SELFPAY | PROVIDERS: PCP Internal Medicine; Visit Provider Internal Medicine | DX: I42.0 Dilated cardiomyopathy (principal); E66.01 Morbid (severe) obesity due to excess calories; Z68.42 Body mass index [BMI] 45.0-49.9, adult | CPT/HCPCS: 96127; 99212 ==